=== PATIENT | male | born 1965 | race American Indian/Alaskan Native ===

== ENCOUNTER 2018-08-16 15:51 | Inpatient (IN) | payer MEDICARE, OTHER ==
[~2018-08-16] VITALS: Ht 172.7 cm; Wt 118.2 kg
[~2018-08-16 15:51] MED LIST: ACET-890 PO; ALBU8.5H8 IH; ALLO100T PO; ASPI-1265 PO; BISA-155 PR; CARV-50 PO; DIGO125T78 PO; DOCU-148; DULR RC; FLO0.4C PO; FURO40TA4 PO; GABA-338 PO; GUAI600T89 PO; INSU100V36 SQ; LACT1CAP65 PO; LANTUS SQ; LEVO125T PO; MAGN400T6 PO; MYCOL15CR TOP; PER10325T PO; POLY119P2 PO; PRAV40TA3 PO; SACU1TAB PO; TAMS0.4C32 PO; ZAR2.5T PO; lidocaine 2%
[2018-08-16] MEDS ORDERED: ondansetron/PF 4mg/2ml inj IV ONE (17:00)
[2018-08-16] MEDS: morphine 4 MG/ML inj SYRINge IV PRN ×2 (17:21→21:27)
[2018-08-16 17:54] LABS: BASOPHILS # (AUTO) 0.1 X10'3 (0-0.2); BASOPHILS % (AUTO) 0.3 % (0-1); EOSINOPHILS # (AUTO) 0.2 X10'3 (0-0.9); EOSINOPHILS % (AUTO) 0.8 % (0-6); HEMATOCRIT 37.9 % (42.0-52.0); HEMOGLOBIN 12.2 g/dl (14.0-17.9); LYMPHOCYTES # (AUTO) 1.6 X10'3 (1.1-4.8); LYMPHOCYTES % (AUTO) 7.4 % (21-51); MEAN CORPUSCULAR HEMOGLOBIN 28.3 PG (27.0-31.0); MEAN CORPUSCULAR HGB CONC 32.3 % (33.0-36.5); MEAN CORPUSCULAR VOLUME 87.7 FL (78-98); MEAN PLATELET VOLUME 10.7 FL (7.4-10.4); MONOCYTES # (AUTO) 0.6 X10'3 (0-0.9); MONOCYTES % (AUTO) 2.8 % (2-12); NEUTROPHILS # (AUTO) 19.1 X10'3 (1.8-7.7); NEUTROPHILS % (AUTO) 88.7 % (42-75); PLATELET COUNT 187 X10'3 (140-440); RED BLOOD COUNT 4.33 X10'6 (4.70-6.10); RED CELL DISTRIBUTION WIDTH 15.6 % (11.5-14.5); WHITE BLOOD COUNT 21.5 X10'3 (4.5-11.0)
[2018-08-16] MEDS ORDERED: levoFLOXACIN-Levaquin 750MG/D5 150 ML IV ONE (18:05)
[2018-08-16] MEDS ORDERED: normal saline 1000ML IV soln IV ONE (18:05)
[2018-08-16 18:09] LABS: ALANINE AMINOTRANSFERASE 22 U/L (12-78); ALBUMIN 3.6 G/DL (3.4-5.0); ALBUMIN/GLOBULIN RATIO 0.9 (1.1-1.5); ALKALINE PHOSPHATASE 102 IU/L (46-116); ANION GAP 12 (8-16); ASPARTATE AMINO TRANSFERASE 16 U/L (10-37); BILIRUBIN,TOTAL 0.7 MG/DL (0.1-1.0); BLOOD UREA NITROGEN 69 MG/DL (7-18); BUN/CREATININE RATIO 43.4 (5.4-32.0); CALCIUM 9.4 MG/DL (8.5-10.1); CHLORIDE 99 MMOL/L (99-107); CREATININE 1.59 MG/DL (0.60-1.10); GLUCOSE 270 MG/DL (70-104); POTASSIUM 4.6 MMOL/L (3.5-5.1); SODIUM 137 MMOL/L (135-145); TOTAL CARBON DIOXIDE 26.1 MMOL/L (24-32); TOTAL PROTEIN 7.5 G/DL (6.4-8.2); eGFR 46 ML/MIN
[2018-08-16 19:22] LABS: CLARITY,URINE CLOUDY (Clear); COLOR,URINE RED (Yellow); UA COLLECTION TYPE FOLEY CATH
[2018-08-16 19:27] LABS: RBC,URINE TNTC /HPF (0-2); WBC,URINE TNTC /HPF (0-4)
[2018-08-16 19:28] LABS: BACTERIA,URINE 3+ /HPF (Neg); MUCUS STRANDS FEW /LPF (Neg); SQUAMOUS EPITHELIAL CELL,UR NONE SEEN /LPF (FEW)
[2018-08-16] MEDS ORDERED: APIX2.5T PO (20:30)
[2018-08-16] MEDS ORDERED: ATOR10TA87 PO (20:30)
[2018-08-16] MEDS ORDERED: CIPR-259 PO (20:30)
[2018-08-16] MEDS ORDERED: INSU100V9 SQ (20:30)
[2018-08-16] MEDS ORDERED: CYCL-394 (20:30)
[2018-08-16] MEDS ORDERED: temazepam 15mg capsule PO PRN (21:00)
[2018-08-16] MEDS ORDERED: acetaminophen 325mg tablet PO PRN ×2 (21:20)
[2018-08-16] MEDS ORDERED: dextrose 50%-water 50ml dispensing syringe IV PRN ×2 (21:20)
[2018-08-16] MEDS ORDERED: mag hydrox/Alum hydrox/simeth 30ml oral suspension PO PRN (21:20)
[2018-08-16] MEDS ORDERED: glucagon, human recombinant 1mg kit SUBCUT PRN (21:20)
[2018-08-16] MEDS ORDERED: MESSAGE TO PHARMACY PO ONE (21:20)
[2018-08-16] MEDS ORDERED: dextrose ORAL solution 15 GM/59 ML bottle PO PRN ×2 (21:20)
[2018-08-16] MEDS ORDERED: non-formulary drug (Albuterol Sulfate (Proair Hfa) 2 PUFFS) IH PRN (21:25)
[2018-08-16 21:39] LABS: HEMOGLOBIN A1C 8.4 % (4.5-6.2)
[2018-08-16 22:20] VITALS: BP 120/66
[2018-08-16] MEDS: oxyCODONE/APAP 10/325mg tablet PO PRN (22:56)
[2018-08-17] VITALS (22 sets, daily range): BP systolic 63–113; BP diastolic 29–86
[2018-08-17] MEDS: phenazopyridine 100mg tablet PO PRN (00:23)
[2018-08-17] MEDS ORDERED: morphine 10mg/ml inj. IV ONE (01:30)
[2018-08-17] MEDS: oxyCODONE/APAP 10/325mg tablet PO PRN (05:03)
[2018-08-17 05:29] LABS: BASOPHILS % (AUTO) 0 % (0-1); EOSINOPHILS % (AUTO) 0 % (0-6); HEMATOCRIT 33.8 % (42.0-52.0); HEMOGLOBIN 11.1 g/dl (14.0-17.9); LYMPHOCYTES # (AUTO) 1.3 X10'3 (1.1-4.8); LYMPHOCYTES % (AUTO) 5.9 % (21-51); MEAN CORPUSCULAR HEMOGLOBIN 28.8 PG (27.0-31.0); MEAN CORPUSCULAR HGB CONC 32.7 % (33.0-36.5); MEAN CORPUSCULAR VOLUME 87.9 FL (78-98); MEAN PLATELET VOLUME 11.1 FL (7.4-10.4); MONOCYTES # (AUTO) 1.5 X10'3 (0-0.9); MONOCYTES % (AUTO) 6.6 % (2-12); NEUTROPHILS # (AUTO) 19.3 X10'3 (1.8-7.7); NEUTROPHILS % (AUTO) 87.5 % (42-75); PLATELET COUNT 161 X10'3 (140-440); RED BLOOD COUNT 3.85 X10'6 (4.70-6.10); RED CELL DISTRIBUTION WIDTH 15.4 % (11.5-14.5)
[2018-08-17 06:40] LABS: ALBUMIN 3.3 G/DL (3.4-5.0); ANION GAP 13 (8-16); BLOOD UREA NITROGEN 68 MG/DL (7-18); BUN/CREATININE RATIO 36.6 (5.4-32.0); CALCIUM 8.7 MG/DL (8.5-10.1); CHLORIDE 99 MMOL/L (99-107); CREATININE 1.86 MG/DL (0.60-1.10); GLUCOSE 215 MG/DL (70-104); POTASSIUM 4.8 MMOL/L (3.5-5.1); SODIUM 134 MMOL/L (135-145); TOTAL CARBON DIOXIDE 21.6 MMOL/L (24-32); eGFR 38 ML/MIN
[2018-08-17] MEDS ORDERED: carVEDilol 12.5mg tablet PO SCH (08:00)
[2018-08-17] MEDS ORDERED: aspirin 81mg tab.chew PO SCH (08:00)
[2018-08-17] MEDS ORDERED: insulin glargine (Lantus) pen - multi-dose SQ SCH ×3 (08:00→21:00)
[2018-08-17] MEDS ORDERED: furosemide 40mg tablet PO SCH (08:00)
[2018-08-17] MEDS ORDERED: apixaban 2.5mg tablet PO SCH (08:00)
[2018-08-17] MEDS: levoTHYROXINE 125mcg tablet PO SCH (08:14)
[2018-08-17] MEDS: levoFLOXACIN-Levaquin 500mg/D5 100 ML IV SCH (08:14)
[2018-08-17] MEDS: magnesium oxide 400mg tablet PO SCH ×2 (08:15→19:04)
[2018-08-17] MEDS: allopurinol 100mg tablet PO SCH (08:15)
[2018-08-17] MEDS: gabapentin 300mg capsule PO SCH ×3 (08:15→20:56)
[2018-08-17] MEDS: digoxin 125mcg (0.125mg) tablet PO SCH (08:16)
[2018-08-17] MEDS: tamsulosin 0.4mg capsule PO SCH (08:17)
[2018-08-17] MEDS: atorvastatin 10mg tablet PO SCH (08:17)
[2018-08-17] MEDS: sacubitril/valsartan 24mg-26mg tablet PO SCH (09:15)
[2018-08-17] MEDS: insulin Lispro (HumaLOG) vial - multi-dose SQ SCH ×3 (09:35→19:00)
[2018-08-17] MEDS: insulin glargine (Lantus) pen - multi-dose SQ SCH ×2 (09:44→20:56)
[2018-08-17 14:50] LABS: BASOPHILS % (AUTO) 0.2 % (0-1); EOSINOPHILS # (AUTO) 0.2 X10'3 (0-0.9); EOSINOPHILS % (AUTO) 1.5 % (0-6); HEMATOCRIT 22.2 % (42.0-52.0); HEMOGLOBIN 7.3 g/dl (14.0-17.9); LYMPHOCYTES # (AUTO) 1.4 X10'3 (1.1-4.8); LYMPHOCYTES % (AUTO) 9.2 % (21-51); MEAN CORPUSCULAR HEMOGLOBIN 28.8 PG (27.0-31.0); MEAN CORPUSCULAR HGB CONC 32.8 % (33.0-36.5); MEAN CORPUSCULAR VOLUME 87.7 FL (78-98); MEAN PLATELET VOLUME 9.6 FL (7.4-10.4); MONOCYTES # (AUTO) 0.8 X10'3 (0-0.9); MONOCYTES % (AUTO) 5.2 % (2-12); NEUTROPHILS # (AUTO) 12.4 X10'3 (1.8-7.7); NEUTROPHILS % (AUTO) 83.9 % (42-75); PLATELET COUNT 119 X10'3 (140-440); RED BLOOD COUNT 2.53 X10'6 (4.70-6.10); RED CELL DISTRIBUTION WIDTH 15.1 % (11.5-14.5); WHITE BLOOD COUNT 14.8 X10'3 (4.5-11.0)
[2018-08-17] MEDS ORDERED: acetaminophen 325mg tablet PO ONE (15:00)
[2018-08-17] MEDS ORDERED: normal saline 500ml IV soln 1,000 ML IV ONE (15:00)
[2018-08-17] MEDS ORDERED: diphenhydrAMINE 25mg capsule PO ONE (15:00)
[2018-08-17] MEDS ORDERED: furosemide 40mg/4ml inj IV ONE (17:00)
[2018-08-17] MEDS: lactobacillus rhamnosus 10,000 MMU CELLS/CAPSULE PO SCH (19:04)
[2018-08-17] MEDS: carVEDilol 3.125mg tablet PO SCH (20:00)
[2018-08-18] VITALS: BP_SYST 92; BP_SYST 94; BP_DIAS 50; BP_DIAS 58
[2018-08-18] MEDS: normal saline 1000ml 1,000 ML IV SCH ×4 (01:00→23:03)
[2018-08-18 02:11] LABS: ALBUMIN 3.1 G/DL (3.4-5.0); ANION GAP 8 (8-16); BASOPHILS # (AUTO) 0.1 X10'3 (0-0.2); BASOPHILS % (AUTO) 0.5 % (0-1); BLOOD UREA NITROGEN 75 MG/DL (7-18); BUN/CREATININE RATIO 34.4 (5.4-32.0); CALCIUM 8.3 MG/DL (8.5-10.1); CHLORIDE 98 MMOL/L (99-107); CREATININE 2.18 MG/DL (0.60-1.10); EOSINOPHILS # (AUTO) 0.4 X10'3 (0-0.9); EOSINOPHILS % (AUTO) 2.2 % (0-6); GLUCOSE 183 MG/DL (70-104); HEMATOCRIT 34.4 % (42.0-52.0); HEMOGLOBIN 11.8 g/dl (14.0-17.9); LYMPHOCYTES # (AUTO) 1.1 X10'3 (1.1-4.8); LYMPHOCYTES % (AUTO) 6.8 % (21-51); MEAN CORPUSCULAR HEMOGLOBIN 30.5 PG (27.0-31.0); MEAN CORPUSCULAR HGB CONC 34.2 % (33.0-36.5); MEAN CORPUSCULAR VOLUME 89.3 FL (78-98); MONOCYTES # (AUTO) 1.3 X10'3 (0-0.9); MONOCYTES % (AUTO) 7.6 % (2-12); NEUTROPHILS # (AUTO) 13.9 X10'3 (1.8-7.7); NEUTROPHILS % (AUTO) 82.9 % (42-75); PLATELET COUNT 123 X10'3 (140-440); POTASSIUM 4.6 MMOL/L (3.5-5.1); RED BLOOD COUNT 3.85 X10'6 (4.70-6.10); RED CELL DISTRIBUTION WIDTH 14.5 % (11.5-14.5); SODIUM 132 MMOL/L (135-145); WHITE BLOOD COUNT 16.8 X10'3 (4.5-11.0); eGFR 32 ML/MIN
[2018-08-18 03:13] VITALS: BP 111/55
[2018-08-18 07:13] VITALS: BP 103/45
[2018-08-18] MEDS ORDERED: furosemide 40mg tablet PO SCH (08:00)
[2018-08-18] MEDS: carVEDilol 3.125mg tablet PO SCH (08:00)
[2018-08-18 08:23] LABS: BASOPHILS % (AUTO) 0 % (0-1); EOSINOPHILS # (AUTO) 0.4 X10'3 (0-0.9); EOSINOPHILS % (AUTO) 2.1 % (0-6); HEMATOCRIT 35.9 % (42.0-52.0); HEMOGLOBIN 11.9 g/dl (14.0-17.9); LYMPHOCYTES # (AUTO) 1.1 X10'3 (1.1-4.8); LYMPHOCYTES % (AUTO) 6.6 % (21-51); MEAN CORPUSCULAR HEMOGLOBIN 29.5 PG (27.0-31.0); MEAN CORPUSCULAR HGB CONC 33.2 % (33.0-36.5); MEAN PLATELET VOLUME 9.9 FL (7.4-10.4); MONOCYTES # (AUTO) 1.1 X10'3 (0-0.9); MONOCYTES % (AUTO) 6.6 % (2-12); NEUTROPHILS # (AUTO) 13.9 X10'3 (1.8-7.7); NEUTROPHILS % (AUTO) 84.7 % (42-75); PLATELET COUNT 127 X10'3 (140-440); RED BLOOD COUNT 4.03 X10'6 (4.70-6.10); RED CELL DISTRIBUTION WIDTH 15.6 % (11.5-14.5); WHITE BLOOD COUNT 16.5 X10'3 (4.5-11.0)
[2018-08-18] MEDS: levoFLOXACIN-Levaquin 500mg/D5 100 ML IV SCH (08:42)
[2018-08-18] MEDS: atorvastatin 10mg tablet PO SCH (08:42)
[2018-08-18] MEDS: digoxin 125mcg (0.125mg) tablet PO SCH (08:43)
[2018-08-18] MEDS: tamsulosin 0.4mg capsule PO SCH (08:43)
[2018-08-18] MEDS: gabapentin 300mg capsule PO SCH ×3 (08:43→20:22)
[2018-08-18] MEDS: allopurinol 100mg tablet PO SCH (08:43)
[2018-08-18] MEDS: lactobacillus rhamnosus 10,000 MMU CELLS/CAPSULE PO SCH ×2 (08:43→20:19)
[2018-08-18] MEDS: levoTHYROXINE 125mcg tablet PO SCH (08:43)
[2018-08-18] MEDS: magnesium oxide 400mg tablet PO SCH ×2 (08:43→20:19)
[2018-08-18] MEDS: insulin glargine (Lantus) pen - multi-dose SQ SCH ×2 (08:51→20:28)
[2018-08-18] MEDS: insulin Lispro (HumaLOG) vial - multi-dose SQ SCH ×2 (08:52→13:29)
[2018-08-18] MEDS ORDERED: carvedilol 6.25mg tablet PO ONE (10:15)
[2018-08-18] MEDS: ondansetron/PF 4mg/2ml inj IV PRN (10:26)
[2018-08-18 11:00] VITALS: BP 116/58
[2018-08-18] MEDS: magnesium hydroxide 30ml (MOM) UD suspension PO PRN (17:02)
[2018-08-18 19:00] VITALS: BP 102/58
[2018-08-18] MEDS: carvedilol 6.25mg tablet PO SCH (20:00)
[2018-08-19] VITALS (7 sets, daily range): BP systolic 91–127; BP diastolic 46–72
[2018-08-19] MEDS: oxyCODONE/APAP 10/325mg tablet PO PRN ×3 (00:09→17:37)
[2018-08-19] MEDS: magnesium hydroxide 30ml (MOM) UD suspension PO PRN (00:09)
[2018-08-19 06:11] LABS: BASOPHILS % (AUTO) 0.1 % (0-1); EOSINOPHILS # (AUTO) 0.2 X10'3 (0-0.9); EOSINOPHILS % (AUTO) 1.4 % (0-6); HEMATOCRIT 34.4 % (42.0-52.0); HEMOGLOBIN 11.2 g/dl (14.0-17.9); LYMPHOCYTES % (AUTO) 7.5 % (21-51); MEAN CORPUSCULAR HEMOGLOBIN 29.1 PG (27.0-31.0); MEAN CORPUSCULAR HGB CONC 32.6 % (33.0-36.5); MEAN CORPUSCULAR VOLUME 89.3 FL (78-98); MEAN PLATELET VOLUME 10.8 FL (7.4-10.4); MONOCYTES # (AUTO) 1.2 X10'3 (0-0.9); MONOCYTES % (AUTO) 8.6 % (2-12); NEUTROPHILS # (AUTO) 11.5 X10'3 (1.8-7.7); NEUTROPHILS % (AUTO) 82.4 % (42-75); PLATELET COUNT 145 X10'3 (140-440); RED BLOOD COUNT 3.85 X10'6 (4.70-6.10); RED CELL DISTRIBUTION WIDTH 15.6 % (11.5-14.5)
[2018-08-19 06:15] LABS: ALBUMIN 2.7 G/DL (3.4-5.0); ANION GAP 10 (8-16); BLOOD UREA NITROGEN 74 MG/DL (7-18); BUN/CREATININE RATIO 35.2 (5.4-32.0); CALCIUM 7.8 MG/DL (8.5-10.1); CHLORIDE 98 MMOL/L (99-107); GLUCOSE 159 MG/DL (70-104); POTASSIUM 4.4 MMOL/L (3.5-5.1); SODIUM 132 MMOL/L (135-145); TOTAL CARBON DIOXIDE 24.5 MMOL/L (24-32); eGFR 33 ML/MIN
[2018-08-19 07:12] LABS: LARGE PLATELETS FEW; PLATELET ESTIMATE NORMAL
[2018-08-19] MEDS: carvedilol 6.25mg tablet PO SCH ×2 (08:00→20:20)
[2018-08-19] MEDS: insulin glargine (Lantus) pen - multi-dose SQ SCH ×2 (08:37→20:17)
[2018-08-19] MEDS: insulin Lispro (HumaLOG) vial - multi-dose SQ SCH ×3 (08:40→18:46)
[2018-08-19] MEDS: levoTHYROXINE 125mcg tablet PO SCH (08:43)
[2018-08-19] MEDS: magnesium oxide 400mg tablet PO SCH ×2 (08:43→20:20)
[2018-08-19] MEDS: lactobacillus rhamnosus 10,000 MMU CELLS/CAPSULE PO SCH ×2 (08:43→20:20)
[2018-08-19] MEDS: levoFLOXACIN-Levaquin 500mg/D5 100 ML IV SCH (08:43)
[2018-08-19] MEDS: tamsulosin 0.4mg capsule PO SCH (08:43)
[2018-08-19] MEDS: gabapentin 300mg capsule PO SCH ×3 (08:43→20:20)
[2018-08-19] MEDS: digoxin 125mcg (0.125mg) tablet PO SCH (08:43)
[2018-08-19] MEDS: allopurinol 100mg tablet PO SCH (08:43)
[2018-08-19] MEDS: atorvastatin 10mg tablet PO SCH (08:45)
[2018-08-19] MEDS ORDERED: NORMAL SALINE IV SCH (09:55)
[2018-08-19] MEDS ORDERED: AMIKACIN IV SCH (09:55)
[2018-08-19] MEDS ORDERED: bisacodyl 10mg suppository rectal RC PRN (10:35)
[2018-08-19] MEDS: pantoprazole 40 MG vial IV SCH (11:32)
[2018-08-19] MEDS: docusate sod 100mg capsule PO SCH ×2 (11:32→20:20)
[2018-08-19] MEDS: morphine 2 MG/ML inj. syringe IV PRN ×2 (11:34→15:33)
[2018-08-19] MEDS: ondansetron/PF 4mg/2ml inj IV PRN (13:06)
[2018-08-19] MEDS: normal saline 1000ml 1,000 ML IV SCH (13:06)
[2018-08-19] MEDS: NORMAL SALINE IV SCH (13:07)
[2018-08-19] MEDS: GENTAMICIN IV SCH (13:07)
[2018-08-19] MEDS: sacubitril/valsartan 24mg-26mg tablet PO SCH (20:20)
[2018-08-20] MEDS: GENTAMICIN IV SCH ×2 (00:34→14:24)
[2018-08-20] MEDS: NORMAL SALINE IV SCH ×2 (00:34→14:24)
[2018-08-20] MEDS: normal saline 1000ml 1,000 ML IV SCH ×2 (00:34→16:52)
[2018-08-20 05:19] LABS: BASOPHILS % (AUTO) 0.1 % (0-1); EOSINOPHILS # (AUTO) 0.1 X10'3 (0-0.9); EOSINOPHILS % (AUTO) 0.9 % (0-6); HEMATOCRIT 31.7 % (42.0-52.0); HEMOGLOBIN 10.5 g/dl (14.0-17.9); LYMPHOCYTES % (AUTO) 6.7 % (21-51); MEAN CORPUSCULAR HEMOGLOBIN 29.4 PG (27.0-31.0); MEAN CORPUSCULAR HGB CONC 33.2 % (33.0-36.5); MEAN CORPUSCULAR VOLUME 88.7 FL (78-98); MEAN PLATELET VOLUME 11.2 FL (7.4-10.4); MONOCYTES # (AUTO) 1.2 X10'3 (0-0.9); MONOCYTES % (AUTO) 8.3 % (2-12); NEUTROPHILS # (AUTO) 11.9 X10'3 (1.8-7.7); PLATELET COUNT 152 X10'3 (140-440); RED BLOOD COUNT 3.57 X10'6 (4.70-6.10); RED CELL DISTRIBUTION WIDTH 15.9 % (11.5-14.5); WHITE BLOOD COUNT 14.2 X10'3 (4.5-11.0)
[2018-08-20 05:35] LABS: ALBUMIN 2.5 G/DL (3.4-5.0); ANION GAP 11 (8-16); BLOOD UREA NITROGEN 82 MG/DL (7-18); BUN/CREATININE RATIO 32.7 (5.4-32.0); CALCIUM 7.5 MG/DL (8.5-10.1); CHLORIDE 95 MMOL/L (99-107); CREATININE 2.51 MG/DL (0.60-1.10); GLUCOSE 88 MG/DL (70-104); POTASSIUM 4.8 MMOL/L (3.5-5.1); SODIUM 128 MMOL/L (135-145); TOTAL CARBON DIOXIDE 21.7 MMOL/L (24-32); eGFR 27 ML/MIN
[2018-08-20] MEDS: carvedilol 6.25mg tablet PO SCH ×2 (06:07→18:38)
[2018-08-20] MEDS: sacubitril/valsartan 24mg-26mg tablet PO SCH ×2 (06:08→18:38)
[2018-08-20] MEDS: atorvastatin 10mg tablet PO SCH (07:29)
[2018-08-20] MEDS: levoTHYROXINE 125mcg tablet PO SCH (07:29)
[2018-08-20] MEDS: lactobacillus rhamnosus 10,000 MMU CELLS/CAPSULE PO SCH ×2 (07:29→20:53)
[2018-08-20] MEDS: allopurinol 100mg tablet PO SCH (07:29)
[2018-08-20] MEDS: pantoprazole 40 MG vial IV SCH (07:29)
[2018-08-20] MEDS: tamsulosin 0.4mg capsule PO SCH (07:29)
[2018-08-20] MEDS: magnesium oxide 400mg tablet PO SCH ×2 (07:29→20:53)
[2018-08-20] MEDS: docusate sod 100mg capsule PO SCH ×2 (07:29→20:00)
[2018-08-20] MEDS: gabapentin 300mg capsule PO SCH ×3 (07:29→20:53)
[2018-08-20] MEDS: digoxin 125mcg (0.125mg) tablet PO SCH (07:30)
[2018-08-20] MEDS: insulin glargine (Lantus) pen - multi-dose SQ SCH ×2 (07:58→21:01)
[2018-08-20 08:00] VITALS: BP 74/44
[2018-08-20] MEDS: morphine 2 MG/ML inj. syringe IV PRN (10:29)
[2018-08-20 11:10] VITALS: BP 81/51
[2018-08-20] MEDS ORDERED: normal saline 500ml IV soln 1,000 ML IV ONE ×2 (12:15→14:15)
[2018-08-20 14:34] LABS: BASOPHILS % (AUTO) 0.1 % (0-1); EOSINOPHILS # (AUTO) 0.2 X10'3 (0-0.9); EOSINOPHILS % (AUTO) 1.3 % (0-6); HEMATOCRIT 32.5 % (42.0-52.0); HEMOGLOBIN 10.6 g/dl (14.0-17.9); LYMPHOCYTES # (AUTO) 1.1 X10'3 (1.1-4.8); LYMPHOCYTES % (AUTO) 9.4 % (21-51); MEAN CORPUSCULAR HEMOGLOBIN 29.1 PG (27.0-31.0); MEAN CORPUSCULAR HGB CONC 32.7 % (33.0-36.5); MEAN CORPUSCULAR VOLUME 89.1 FL (78-98); MEAN PLATELET VOLUME 10.1 FL (7.4-10.4); MONOCYTES # (AUTO) 1.4 X10'3 (0-0.9); MONOCYTES % (AUTO) 11.7 % (2-12); NEUTROPHILS # (AUTO) 9.3 X10'3 (1.8-7.7); NEUTROPHILS % (AUTO) 77.5 % (42-75); PLATELET COUNT 152 X10'3 (140-440); RED BLOOD COUNT 3.65 X10'6 (4.70-6.10); RED CELL DISTRIBUTION WIDTH 16.5 % (11.5-14.5)
[2018-08-20 14:45] LABS: ALBUMIN 2.5 G/DL (3.4-5.0); ANION GAP 11 (8-16); BLOOD UREA NITROGEN 88 MG/DL (7-18); BUN/CREATININE RATIO 32.6 (5.4-32.0); CALCIUM 7.4 MG/DL (8.5-10.1); CHLORIDE 95 MMOL/L (99-107); GLUCOSE 128 MG/DL (70-104); POTASSIUM 4.8 MMOL/L (3.5-5.1); SODIUM 127 MMOL/L (135-145); TOTAL CARBON DIOXIDE 21.3 MMOL/L (24-32); eGFR 25 ML/MIN
[2018-08-20 18:00] VITALS: BP 82/52
[2018-08-21] VITALS: BP 100/56
[2018-08-21] MEDS ORDERED: MESSAGE TO NURSING IV ONE ×4 (00:30→13:30)
[2018-08-21] MEDS: NORMAL SALINE IV SCH ×2 (00:32→13:10)
[2018-08-21] MEDS: GENTAMICIN IV SCH ×2 (00:32→13:10)
[2018-08-21] MEDS: albuterol 2.5 MG/3 ML nebule NEB PRN ×2 (05:56→21:34)
[2018-08-21 07:41] VITALS: BP 108/61
[2018-08-21] MEDS: carvedilol 6.25mg tablet PO SCH ×2 (08:00→19:49)
[2018-08-21] MEDS: sacubitril/valsartan 24mg-26mg tablet PO SCH ×2 (08:00→19:50)
[2018-08-21] MEDS: atorvastatin 10mg tablet PO SCH (09:26)
[2018-08-21] MEDS: pantoprazole 40mg Tablet.DR PO SCH (09:26)
[2018-08-21] MEDS: lactobacillus rhamnosus 10,000 MMU CELLS/CAPSULE PO SCH ×2 (09:27→20:05)
[2018-08-21] MEDS: magnesium oxide 400mg tablet PO SCH ×2 (09:27→20:05)
[2018-08-21] MEDS: digoxin 125mcg (0.125mg) tablet PO SCH (09:28)
[2018-08-21] MEDS: docusate sod 100mg capsule PO SCH ×2 (09:28→20:04)
[2018-08-21] MEDS: allopurinol 100mg tablet PO SCH (09:29)
[2018-08-21] MEDS: gabapentin 300mg capsule PO SCH ×2 (09:29→20:05)
[2018-08-21] MEDS: oxyCODONE/APAP 10/325mg tablet PO PRN (09:30)
[2018-08-21] MEDS: tamsulosin 0.4mg capsule PO SCH (09:31)
[2018-08-21] MEDS: levoTHYROXINE 125mcg tablet PO SCH (09:31)
[2018-08-21] MEDS: insulin glargine (Lantus) pen - multi-dose SQ SCH ×2 (09:39→21:26)
[2018-08-21] MEDS: insulin Lispro (HumaLOG) vial - multi-dose SQ SCH ×3 (09:53→18:53)
[2018-08-21 11:45] VITALS: BP 108/58
[2018-08-21 12:53] LABS: BASOPHILS % (AUTO) 0.2 % (0-1); EOSINOPHILS # (AUTO) 0.2 X10'3 (0-0.9); EOSINOPHILS % (AUTO) 1.9 % (0-6); HEMATOCRIT 32.6 % (42.0-52.0); HEMOGLOBIN 10.7 g/dl (14.0-17.9); LYMPHOCYTES # (AUTO) 1.5 X10'3 (1.1-4.8); LYMPHOCYTES % (AUTO) 12.4 % (21-51); MEAN CORPUSCULAR HEMOGLOBIN 29.2 PG (27.0-31.0); MEAN CORPUSCULAR HGB CONC 32.9 % (33.0-36.5); MEAN CORPUSCULAR VOLUME 88.7 FL (78-98); MEAN PLATELET VOLUME 10.5 FL (7.4-10.4); MONOCYTES # (AUTO) 1.5 X10'3 (0-0.9); MONOCYTES % (AUTO) 12.2 % (2-12); NEUTROPHILS # (AUTO) 8.8 X10'3 (1.8-7.7); NEUTROPHILS % (AUTO) 73.3 % (42-75); PLATELET COUNT 172 X10'3 (140-440); RED BLOOD COUNT 3.67 X10'6 (4.70-6.10); RED CELL DISTRIBUTION WIDTH 16.1 % (11.5-14.5)
[2018-08-21 12:59] LABS: ALBUMIN 2.6 G/DL (3.4-5.0); ANION GAP 9 (8-16); BLOOD UREA NITROGEN 99 MG/DL (7-18); BUN/CREATININE RATIO 37.5 (5.4-32.0); CALCIUM 7.7 MG/DL (8.5-10.1); CHLORIDE 94 MMOL/L (99-107); CREATININE 2.64 MG/DL (0.60-1.10); GLUCOSE 146 MG/DL (70-104); POTASSIUM 4.4 MMOL/L (3.5-5.1); SODIUM 126 MMOL/L (135-145); eGFR 25 ML/MIN
[2018-08-21 20:00] VITALS: BP 124/64
[2018-08-21] MEDS: HYDROcodone/acetaminophen 5mg/325mg tablet PO PRN (23:58)
[2018-08-22] VITALS: BP 122/62
[2018-08-22] MEDS: albuterol 2.5 MG/3 ML nebule NEB PRN ×3 (02:49→19:58)
[2018-08-22 05:30] LABS: BASOPHILS % (AUTO) 0.3 % (0-1); EOSINOPHILS # (AUTO) 0.4 X10'3 (0-0.9); EOSINOPHILS % (AUTO) 2.9 % (0-6); HEMOGLOBIN 10.5 g/dl (14.0-17.9); LYMPHOCYTES # (AUTO) 1.6 X10'3 (1.1-4.8); MEAN CORPUSCULAR HEMOGLOBIN 28.7 PG (27.0-31.0); MEAN CORPUSCULAR HGB CONC 32.7 % (33.0-36.5); MEAN CORPUSCULAR VOLUME 87.8 FL (78-98); MEAN PLATELET VOLUME 11.1 FL (7.4-10.4); MONOCYTES # (AUTO) 1.5 X10'3 (0-0.9); MONOCYTES % (AUTO) 12.1 % (2-12); NEUTROPHILS # (AUTO) 8.9 X10'3 (1.8-7.7); NEUTROPHILS % (AUTO) 71.7 % (42-75); PLATELET COUNT 181 X10'3 (140-440); RED BLOOD COUNT 3.64 X10'6 (4.70-6.10); WHITE BLOOD COUNT 12.5 X10'3 (4.5-11.0)
[2018-08-22 05:37] LABS: ALBUMIN 2.6 G/DL (3.4-5.0); ANION GAP 12 (8-16); BLOOD UREA NITROGEN 98 MG/DL (7-18); BUN/CREATININE RATIO 40.8 (5.4-32.0); CALCIUM 7.6 MG/DL (8.5-10.1); CHLORIDE 94 MMOL/L (99-107); GLUCOSE 129 MG/DL (70-104); POTASSIUM 4.3 MMOL/L (3.5-5.1); SODIUM 127 MMOL/L (135-145); TOTAL CARBON DIOXIDE 21.4 MMOL/L (24-32); eGFR 28 ML/MIN
[2018-08-22 06:39] LABS: LARGE PLATELETS FEW; PLATELET ESTIMATE NORMAL
[2018-08-22 07:00] VITALS: BP 106/64
[2018-08-22 07:33] VITALS: BP 106/64
[2018-08-22] MEDS: sacubitril/valsartan 24mg-26mg tablet PO SCH ×2 (08:00→19:13)
[2018-08-22] MEDS: carvedilol 6.25mg tablet PO SCH ×2 (08:00→19:13)
[2018-08-22] MEDS: docusate sod 100mg capsule PO SCH ×2 (08:44→19:05)
[2018-08-22] MEDS: lactobacillus rhamnosus 10,000 MMU CELLS/CAPSULE PO SCH ×2 (08:44→19:11)
[2018-08-22] MEDS: pantoprazole 40mg Tablet.DR PO SCH (08:45)
[2018-08-22] MEDS: tamsulosin 0.4mg capsule PO SCH (08:45)
[2018-08-22] MEDS: atorvastatin 10mg tablet PO SCH (08:46)
[2018-08-22] MEDS: digoxin 125mcg (0.125mg) tablet PO SCH (08:46)
[2018-08-22] MEDS: gabapentin 300mg capsule PO SCH ×2 (08:47→19:11)
[2018-08-22] MEDS: magnesium oxide 400mg tablet PO SCH ×2 (08:47→19:11)
[2018-08-22] MEDS: levoTHYROXINE 125mcg tablet PO SCH (08:47)
[2018-08-22] MEDS: allopurinol 100mg tablet PO SCH (08:48)
[2018-08-22] MEDS: insulin glargine (Lantus) pen - multi-dose SQ SCH ×2 (08:55→21:59)
[2018-08-22] MEDS: insulin Lispro (HumaLOG) vial - multi-dose SQ SCH ×3 (09:28→19:03)
[2018-08-22] MEDS: HYDROcodone/acetaminophen 5mg/325mg tablet PO PRN ×2 (10:31→19:13)
[2018-08-22 11:22] VITALS: BP 112/67
[2018-08-22] MEDS ORDERED: MESSAGE TO NURSING IV ONE (12:00)
[2018-08-22] MEDS ORDERED: furosemide 20MG tablet PO ONE (12:45)
[2018-08-22] MEDS: sodium chloride 1gm tablet PO SCH ×2 (17:13→22:02)
[2018-08-22 19:11] VITALS: BP 132/62
[2018-08-22] MEDS: phenazopyridine 100mg tablet PO PRN (19:11)
[2018-08-22] MEDS: furosemide 40mg tablet PO SCH (19:11)
[2018-08-22 20:00] VITALS: BP 133/57
[2018-08-23] VITALS: BP 135/70
[2018-08-23] MEDS: phenazopyridine 100mg tablet PO PRN (03:13)
[2018-08-23] MEDS: HYDROcodone/acetaminophen 5mg/325mg tablet PO PRN ×2 (03:13→13:33)
[2018-08-23 05:25] LABS: BASOPHILS % (AUTO) 0.2 % (0-1); EOSINOPHILS # (AUTO) 0.5 X10'3 (0-0.9); EOSINOPHILS % (AUTO) 4.1 % (0-6); HEMATOCRIT 32.6 % (42.0-52.0); HEMOGLOBIN 10.8 g/dl (14.0-17.9); LYMPHOCYTES # (AUTO) 1.5 X10'3 (1.1-4.8); LYMPHOCYTES % (AUTO) 11.3 % (21-51); MEAN CORPUSCULAR HGB CONC 33.2 % (33.0-36.5); MEAN CORPUSCULAR VOLUME 87.4 FL (78-98); MEAN PLATELET VOLUME 10.3 FL (7.4-10.4); MONOCYTES # (AUTO) 1.1 X10'3 (0-0.9); MONOCYTES % (AUTO) 8.7 % (2-12); NEUTROPHILS % (AUTO) 75.7 % (42-75); PLATELET COUNT 193 X10'3 (140-440); RED BLOOD COUNT 3.73 X10'6 (4.70-6.10); RED CELL DISTRIBUTION WIDTH 15.9 % (11.5-14.5); WHITE BLOOD COUNT 13.2 X10'3 (4.5-11.0)
[2018-08-23 05:53] LABS: ALANINE AMINOTRANSFERASE 27 U/L (12-78); ALBUMIN 2.8 G/DL (3.4-5.0); ALBUMIN/GLOBULIN RATIO 0.8 (1.1-1.5); ALKALINE PHOSPHATASE 100 IU/L (46-116); ANION GAP 11 (8-16); ASPARTATE AMINO TRANSFERASE 14 U/L (10-37); BILIRUBIN,TOTAL 0.6 MG/DL (0.1-1.0); BLOOD UREA NITROGEN 97 MG/DL (7-18); CALCIUM 7.9 MG/DL (8.5-10.1); CHLORIDE 95 MMOL/L (99-107); CREATININE 2.02 MG/DL (0.60-1.10); GLUCOSE 126 MG/DL (70-104); MAGNESIUM 3.2 MG/DL (1.5-2.4); POTASSIUM 3.9 MMOL/L (3.5-5.1); SODIUM 130 MMOL/L (135-145); TOTAL CARBON DIOXIDE 23.7 MMOL/L (24-32); TOTAL PROTEIN 6.5 G/DL (6.4-8.2); eGFR 35 ML/MIN
[2018-08-23 07:58] VITALS: BP 121/74
[2018-08-23] MEDS: tamsulosin 0.4mg capsule PO SCH (08:00)
[2018-08-23] MEDS: carvedilol 6.25mg tablet PO SCH ×2 (08:00→20:00)
[2018-08-23] MEDS: gabapentin 300mg capsule PO SCH ×2 (08:00→22:06)
[2018-08-23] MEDS: sacubitril/valsartan 24mg-26mg tablet PO SCH ×2 (08:00→20:00)
[2018-08-23] MEDS: atorvastatin 10mg tablet PO SCH (08:00)
[2018-08-23] MEDS: pantoprazole 40mg Tablet.DR PO SCH (08:01)
[2018-08-23] MEDS: docusate sod 100mg capsule PO SCH ×2 (08:01→20:00)
[2018-08-23] MEDS: digoxin 125mcg (0.125mg) tablet PO SCH (08:01)
[2018-08-23] MEDS: lactobacillus rhamnosus 10,000 MMU CELLS/CAPSULE PO SCH ×2 (08:01→22:05)
[2018-08-23] MEDS: allopurinol 100mg tablet PO SCH (08:01)
[2018-08-23] MEDS: furosemide 40mg tablet PO SCH ×2 (08:01→22:05)
[2018-08-23] MEDS: magnesium oxide 400mg tablet PO SCH ×2 (08:02→22:05)
[2018-08-23] MEDS: levoTHYROXINE 125mcg tablet PO SCH (08:02)
[2018-08-23] MEDS: sodium chloride 1gm tablet PO SCH ×4 (08:08→22:06)
[2018-08-23] MEDS: insulin Lispro (HumaLOG) vial - multi-dose SQ SCH ×3 (08:12→18:55)
[2018-08-23] MEDS: insulin glargine (Lantus) pen - multi-dose SQ SCH ×2 (08:21→22:09)
[2018-08-23 11:47] VITALS: BP 141/74
[2018-08-23 20:00] VITALS: BP 119/68
[2018-08-23] MEDS: albuterol 2.5 MG/3 ML nebule NEB PRN (20:40)
[2018-08-24] VITALS: BP 138/70
[2018-08-24] MEDS: HYDROcodone/acetaminophen 5mg/325mg tablet PO PRN ×2 (01:48→19:29)
[2018-08-24 05:55] LABS: BASOPHILS # (AUTO) 0.1 X10'3 (0-0.2); BASOPHILS % (AUTO) 0.4 % (0-1); EOSINOPHILS # (AUTO) 0.6 X10'3 (0-0.9); HEMATOCRIT 34.9 % (42.0-52.0); HEMOGLOBIN 11.4 g/dl (14.0-17.9); LYMPHOCYTES # (AUTO) 1.6 X10'3 (1.1-4.8); LYMPHOCYTES % (AUTO) 10.8 % (21-51); MEAN CORPUSCULAR HEMOGLOBIN 28.5 PG (27.0-31.0); MEAN CORPUSCULAR HGB CONC 32.6 % (33.0-36.5); MEAN CORPUSCULAR VOLUME 87.5 FL (78-98); MONOCYTES # (AUTO) 1.3 X10'3 (0-0.9); MONOCYTES % (AUTO) 8.3 % (2-12); NEUTROPHILS # (AUTO) 11.7 X10'3 (1.8-7.7); NEUTROPHILS % (AUTO) 76.5 % (42-75); PLATELET COUNT 239 X10'3 (140-440); RED CELL DISTRIBUTION WIDTH 15.7 % (11.5-14.5); WHITE BLOOD COUNT 15.3 X10'3 (4.5-11.0)
[2018-08-24 06:53] VITALS: BP 144/81
[2018-08-24 06:58] LABS: ALANINE AMINOTRANSFERASE 22 U/L (12-78); ALBUMIN 2.9 G/DL (3.4-5.0); ALBUMIN/GLOBULIN RATIO 0.7 (1.1-1.5); ALKALINE PHOSPHATASE 99 IU/L (46-116); ANION GAP 11 (8-16); ASPARTATE AMINO TRANSFERASE 12 U/L (10-37); BILIRUBIN,TOTAL 0.6 MG/DL (0.1-1.0); BLOOD UREA NITROGEN 87 MG/DL (7-18); BUN/CREATININE RATIO 48.9 (5.4-32.0); CALCIUM 8.3 MG/DL (8.5-10.1); CHLORIDE 99 MMOL/L (99-107); CREATININE 1.78 MG/DL (0.60-1.10); GLUCOSE 70 MG/DL (70-104); MAGNESIUM 2.9 MG/DL (1.5-2.4); PHOSPHORUS 3.3 MG/DL (2.3-4.5); POTASSIUM 3.7 MMOL/L (3.5-5.1); SODIUM 135 MMOL/L (135-145); TOTAL CARBON DIOXIDE 25.1 MMOL/L (24-32); TOTAL PROTEIN 6.9 G/DL (6.4-8.2); eGFR 40 ML/MIN
[2018-08-24] MEDS: lactobacillus rhamnosus 10,000 MMU CELLS/CAPSULE PO SCH ×2 (08:50→19:28)
[2018-08-24] MEDS: gabapentin 300mg capsule PO SCH ×2 (08:50→19:28)
[2018-08-24] MEDS: digoxin 125mcg (0.125mg) tablet PO SCH (08:50)
[2018-08-24] MEDS: levoTHYROXINE 125mcg tablet PO SCH (08:51)
[2018-08-24] MEDS: docusate sod 100mg capsule PO SCH ×2 (08:51→19:30)
[2018-08-24] MEDS: allopurinol 100mg tablet PO SCH (08:51)
[2018-08-24] MEDS: sacubitril/valsartan 24mg-26mg tablet PO SCH ×2 (08:51→19:35)
[2018-08-24] MEDS: furosemide 40mg tablet PO SCH ×2 (08:51→19:29)
[2018-08-24] MEDS: magnesium oxide 400mg tablet PO SCH ×2 (08:51→19:29)
[2018-08-24] MEDS: atorvastatin 10mg tablet PO SCH (08:51)
[2018-08-24] MEDS: carvedilol 6.25mg tablet PO SCH ×2 (08:51→19:29)
[2018-08-24] MEDS: sodium chloride 1gm tablet PO SCH ×3 (08:51→16:51)
[2018-08-24] MEDS: tamsulosin 0.4mg capsule PO SCH (08:51)
[2018-08-24] MEDS: pantoprazole 40mg Tablet.DR PO SCH (09:06)
[2018-08-24] MEDS: insulin glargine (Lantus) pen - multi-dose SQ SCH ×2 (10:51→19:54)
[2018-08-24 11:46] VITALS: BP 128/74
[2018-08-24] MEDS: insulin Lispro (HumaLOG) vial - multi-dose SQ SCH ×2 (13:24→18:28)
[2018-08-24 18:00] VITALS: BP 115/59
[2018-08-24] MEDS: apixaban 2.5mg tablet PO SCH (19:29)
[2018-08-25] VITALS: BP 129/63
[2018-08-25 06:08] LABS: BASOPHILS # (AUTO) 0.1 X10'3 (0-0.2); BASOPHILS % (AUTO) 0.4 % (0-1); EOSINOPHILS # (AUTO) 0.6 X10'3 (0-0.9); EOSINOPHILS % (AUTO) 4.2 % (0-6); HEMOGLOBIN 10.6 g/dl (14.0-17.9); LYMPHOCYTES # (AUTO) 1.8 X10'3 (1.1-4.8); LYMPHOCYTES % (AUTO) 12.8 % (21-51); MEAN CORPUSCULAR HEMOGLOBIN 28.3 PG (27.0-31.0); MEAN CORPUSCULAR HGB CONC 32.2 % (33.0-36.5); MEAN CORPUSCULAR VOLUME 88.1 FL (78-98); MEAN PLATELET VOLUME 9.8 FL (7.4-10.4); MONOCYTES # (AUTO) 1.2 X10'3 (0-0.9); MONOCYTES % (AUTO) 8.8 % (2-12); NEUTROPHILS # (AUTO) 10.4 X10'3 (1.8-7.7); NEUTROPHILS % (AUTO) 73.8 % (42-75); PLATELET COUNT 270 X10'3 (140-440); RED BLOOD COUNT 3.75 X10'6 (4.70-6.10); RED CELL DISTRIBUTION WIDTH 15.5 % (11.5-14.5); WHITE BLOOD COUNT 14.1 X10'3 (4.5-11.0)
[2018-08-25 06:32] LABS: ALANINE AMINOTRANSFERASE 17 U/L (12-78); ALBUMIN 2.7 G/DL (3.4-5.0); ALBUMIN/GLOBULIN RATIO 0.7 (1.1-1.5); ALKALINE PHOSPHATASE 99 IU/L (46-116); ANION GAP 9 (8-16); ASPARTATE AMINO TRANSFERASE 10 U/L (10-37); BILIRUBIN,TOTAL 0.6 MG/DL (0.1-1.0); BLOOD UREA NITROGEN 77 MG/DL (7-18); CHLORIDE 100 MMOL/L (99-107); CREATININE 1.75 MG/DL (0.60-1.10); GLUCOSE 111 MG/DL (70-104); MAGNESIUM 2.6 MG/DL (1.5-2.4); PHOSPHORUS 2.7 MG/DL (2.3-4.5); POTASSIUM 3.6 MMOL/L (3.5-5.1); SODIUM 136 MMOL/L (135-145); TOTAL CARBON DIOXIDE 26.6 MMOL/L (24-32); TOTAL PROTEIN 6.5 G/DL (6.4-8.2); eGFR 41 ML/MIN
[2018-08-25] MEDS: docusate sod 100mg capsule PO SCH (07:04)
[2018-08-25 07:39] VITALS: BP 127/67
[2018-08-25] MEDS: pantoprazole 40mg Tablet.DR PO SCH (08:08)
[2018-08-25] MEDS: lactobacillus rhamnosus 10,000 MMU CELLS/CAPSULE PO SCH (08:08)
[2018-08-25] MEDS: carvedilol 6.25mg tablet PO SCH (08:08)
[2018-08-25] MEDS: magnesium oxide 400mg tablet PO SCH (08:08)
[2018-08-25] MEDS: gabapentin 300mg capsule PO SCH (08:08)
[2018-08-25] MEDS: tamsulosin 0.4mg capsule PO SCH (08:09)
[2018-08-25] MEDS: sacubitril/valsartan 24mg-26mg tablet PO SCH (08:09)
[2018-08-25] MEDS: allopurinol 100mg tablet PO SCH (08:09)
[2018-08-25] MEDS: levoTHYROXINE 125mcg tablet PO SCH (08:09)
[2018-08-25] MEDS: digoxin 125mcg (0.125mg) tablet PO SCH (08:09)
[2018-08-25] MEDS: apixaban 2.5mg tablet PO SCH (08:09)
[2018-08-25] MEDS: furosemide 40mg tablet PO SCH (08:09)
[2018-08-25] MEDS: atorvastatin 10mg tablet PO SCH (08:09)
[2018-08-25] MEDS: insulin glargine (Lantus) pen - multi-dose SQ SCH (08:15)
[2018-08-25] MEDS ORDERED: aspirin 81mg tablet.DR PO SCH (08:30)
[2018-08-25 11:44] VITALS: BP 112/62
== END 2018-08-25 17:21 | disposition home or self-care (01) | DRG 698 ==
LOC: ER 15:52 → OBSVTOIN 21:18 → ED HOLD 21:18 → SUR 3N 22:10
PROVIDERS: ADMIT Hospitalist; ATTEND Hospitalist
PROC: 30233L1 Transfusion of Nonautologous Fresh Plasma into Peripheral Vein, Percutaneous Approach (ICD-10-PCS; principal; 2018-08-17)
PROC: 30233N1 Transfusion of Nonautologous Red Blood Cells into Peripheral Vein, Percutaneous Approach (ICD-10-PCS; 2018-08-17)
PROC: 30233K1 Transfusion of Nonautologous Frozen Plasma into Peripheral Vein, Percutaneous Approach (ICD-10-PCS; 2018-08-17)
DX: T83.83XA Hemorrhage due to genitourinary prosthetic devices, implants and grafts, initial encounter (principal); A41.9 Sepsis, unspecified organism; N39.0 Urinary tract infection, site not specified; D62 Acute posthemorrhagic anemia; N17.9 Acute kidney failure, unspecified; E87.1 Hypo-osmolality and hyponatremia; I13.0 Hypertensive heart and chronic kidney disease with heart failure and stage 1 through stage 4 chronic kidney disease, or unspecified chronic kidney disease; I42.0 Dilated cardiomyopathy; N32.81 Overactive bladder; B96.20 Unspecified Escherichia coli [E. coli] as the cause of diseases classified elsewhere; E11.21 Type 2 diabetes mellitus with diabetic nephropathy; E11.22 Type 2 diabetes mellitus with diabetic chronic kidney disease; E11.51 Type 2 diabetes mellitus with diabetic peripheral angiopathy without gangrene; E78.5 Hyperlipidemia, unspecified; G89.4 Chronic pain syndrome; I48.91 Unspecified atrial fibrillation; I50.9 Heart failure, unspecified; J44.9 Chronic obstructive pulmonary disease, unspecified; Z96.653 Presence of artificial knee joint, bilateral; Y84.6 Urinary catheterization as the cause of abnormal reaction of the patient, or of later complication, without mention of misadventure at the time of the procedure; I95.9 Hypotension, unspecified; K59.09 Other constipation; Z16.12 Extended spectrum beta lactamase (ESBL) resistance; M79.606 Pain in leg, unspecified; X58.XXXA Exposure to other specified factors, initial encounter; K21.9 Gastro-esophageal reflux disease without esophagitis; N18.3 Chronic kidney disease, stage 3 (moderate); Z16.24 Resistance to multiple antibiotics; Z89.201 Acquired absence of right upper limb, unspecified level; Z89.511 Acquired absence of right leg below knee; Z95.810 Presence of automatic (implantable) cardiac defibrillator; Z99.3 Dependence on wheelchair; Z74.01 Bed confinement status; Z79.890 Hormone replacement therapy; Z79.899 Other long term (current) drug therapy; Z88.2 Allergy status to sulfonamides; Z88.1 Allergy status to other antibiotic agents; Z91.011 Allergy to milk products; Z88.0 Allergy status to penicillin; Z79.4 Long term (current) use of insulin; Z79.82 Long term (current) use of aspirin; Z87.891 Personal history of nicotine dependence; Z86.73 Personal history of transient ischemic attack (TIA), and cerebral infarction without residual deficits; Y93.89 Activity, other specified; Y92.89 Other specified places as the place of occurrence of the external cause; Y99.8 Other external cause status
CPT/HCPCS: 36415; 71045; 80048; 80053; 80162; 81001; 82948; 83036; 83605; 83735; 84100; 84145; 84443; 85025; 86885; 86900; 86901; 86920; 87040; 87070; 87077; 87088; 87186; 93306; 93971; 94640; 94760; 97162; 97530; 99285; C9113; G0378; J1580; J1815; J1956; J2270; J2405; J7030; P9016; P9059; Q0163; Q2037

== ENCOUNTER 2018-09-03 21:34 | Inpatient (IN) | payer MEDICARE, OTHER ==
[~2018-09-03] VITALS: Ht 175.3 cm; Wt 101.0 kg
[~2018-09-03 21:34] MED LIST changes: +APIX2.5T PO; +ATOR10TA87 PO; +CYCL-394; -DOCU-148; +DOCU-148 PO; -DULR RC; -GUAI600T89 PO; +INSU100V9 SQ; -LACT1CAP65 PO; -POLY119P2 PO; -PRAV40TA3 PO; -TAMS0.4C32 PO; -ZAR2.5T PO
[2018-09-03] MEDS ORDERED: furosemide 40mg/4ml inj IV ONE ×2 (22:10→23:05)
[2018-09-03 22:15] LABS: BASOPHILS # (AUTO) 0.1 X10'3 (0-0.2); BASOPHILS % (AUTO) 0.5 % (0-1); EOSINOPHILS # (AUTO) 0.5 X10'3 (0-0.9); EOSINOPHILS % (AUTO) 3.8 % (0-6); HEMATOCRIT 33.5 % (42.0-52.0); HEMOGLOBIN 10.7 g/dl (14.0-17.9); LYMPHOCYTES # (AUTO) 1.3 X10'3 (1.1-4.8); LYMPHOCYTES % (AUTO) 9.9 % (21-51); MEAN CORPUSCULAR HEMOGLOBIN 27.7 PG (27.0-31.0); MEAN CORPUSCULAR HGB CONC 31.9 % (33.0-36.5); MEAN PLATELET VOLUME 9.6 FL (7.4-10.4); MONOCYTES # (AUTO) 0.7 X10'3 (0-0.9); NEUTROPHILS # (AUTO) 10.8 X10'3 (1.8-7.7); NEUTROPHILS % (AUTO) 80.8 % (42-75); PLATELET COUNT 237 X10'3 (140-440); RED BLOOD COUNT 3.85 X10'6 (4.70-6.10); WHITE BLOOD COUNT 13.4 X10'3 (4.5-11.0)
[2018-09-03 22:31] LABS: ALANINE AMINOTRANSFERASE 11 U/L (12-78); ALBUMIN 2.8 G/DL (3.4-5.0); ALBUMIN/GLOBULIN RATIO 0.7 (1.1-1.5); ALKALINE PHOSPHATASE 80 IU/L (46-116); ANION GAP 10 (8-16); ASPARTATE AMINO TRANSFERASE 10 U/L (10-37); BILIRUBIN,TOTAL 0.5 MG/DL (0.1-1.0); BLOOD UREA NITROGEN 136 MG/DL (7-18); BUN/CREATININE RATIO 19.9 (5.4-32.0); CALCIUM 7.8 MG/DL (8.5-10.1); CHLORIDE 95 MMOL/L (99-107); CREATININE 6.82 MG/DL (0.60-1.10); GLUCOSE 84 MG/DL (70-104); POTASSIUM 5.3 MMOL/L (3.5-5.1); SODIUM 133 MMOL/L (135-145); TOTAL CARBON DIOXIDE 27.9 MMOL/L (24-32); TOTAL PROTEIN 6.7 G/DL (6.4-8.2); eGFR 8 ML/MIN
[2018-09-03 22:42] LABS: INR 1.2 INR; PARTIAL THROMBOPLASTIN TIME 38 SECONDS (22-32); PROTHROMBIN TIME 12.3 SECONDS (9.0-12.0)
[2018-09-04] MEDS ORDERED: dextrose ORAL solution 15 GM/59 ML bottle PO PRN ×2 (01:40)
[2018-09-04] MEDS ORDERED: MESSAGE TO PHARMACY PO ONE (01:40)
[2018-09-04] MEDS ORDERED: dextrose 50%-water 50ml dispensing syringe IV PRN ×2 (01:40)
[2018-09-04] MEDS ORDERED: magnesium hydroxide 30ml (MOM) UD suspension PO PRN (01:40)
[2018-09-04] MEDS ORDERED: acetaminophen 325mg tablet PO PRN ×2 (01:40)
[2018-09-04] MEDS ORDERED: ondansetron/PF 4mg/2ml inj IV PRN (01:40)
[2018-09-04] MEDS ORDERED: glucagon, human recombinant 1mg kit SUBCUT PRN (01:40)
[2018-09-04] MEDS ORDERED: apixaban 2.5mg tablet PO STA (01:44)
[2018-09-04] MEDS ORDERED: bisacodyl 5mg tablet.DR PO PRN (01:45)
[2018-09-04 02:00] VITALS: BP 128/74
[2018-09-04 07:00] VITALS: BP 111/45
[2018-09-04] MEDS: sacubitril/valsartan 24mg-26mg tablet PO SCH ×2 (08:00→20:00)
[2018-09-04] MEDS: carVEDilol 12.5mg tablet PO SCH ×2 (08:00→20:00)
[2018-09-04] MEDS: tamsulosin 0.4mg capsule PO SCH (08:18)
[2018-09-04] MEDS: gabapentin 100mg capsule PO SCH (08:18)
[2018-09-04] MEDS: aspirin 81mg tab.chew PO SCH (08:18)
[2018-09-04] MEDS: docusate sod 100mg capsule PO SCH ×2 (08:18→20:04)
[2018-09-04] MEDS: atorvastatin 10mg tablet PO SCH (08:18)
[2018-09-04] MEDS: levoTHYROXINE 125mcg tablet PO SCH (08:18)
[2018-09-04] MEDS: furosemide 10 MG/1 ML 10ml inj IV SCH ×2 (08:20→20:00)
[2018-09-04] MEDS ORDERED: ZAR2.5T PO (09:38)
[2018-09-04 11:00] VITALS: BP 115/58
[2018-09-04 15:00] VITALS: BP 115/58
[2018-09-04] MEDS: apixaban 2.5mg tablet PO SCH (16:00)
[2018-09-04 19:00] VITALS: BP 98/38
[2018-09-04] MEDS ORDERED: sodium polystyrene sulfonate 15gm/60ml oral suspension PO ONE (20:05)
[2018-09-04] MEDS: insulin glargine (Lantus) pen - multi-dose SQ SCH (21:00)
[2018-09-04 23:00] VITALS: BP 107/39
[2018-09-05] MEDS: apixaban 2.5mg tablet PO SCH (02:49)
[2018-09-05 03:00] VITALS: BP 96/35
[2018-09-05 05:10] LABS: BASOPHILS % (AUTO) 0.3 % (0-1); EOSINOPHILS # (AUTO) 0.5 X10'3 (0-0.9); EOSINOPHILS % (AUTO) 4.9 % (0-6); HEMATOCRIT 31.8 % (42.0-52.0); HEMOGLOBIN 10.3 g/dl (14.0-17.9); LYMPHOCYTES # (AUTO) 1.4 X10'3 (1.1-4.8); LYMPHOCYTES % (AUTO) 13.2 % (21-51); MEAN CORPUSCULAR HEMOGLOBIN 28.3 PG (27.0-31.0); MEAN CORPUSCULAR HGB CONC 32.3 % (33.0-36.5); MEAN CORPUSCULAR VOLUME 87.4 FL (78-98); MEAN PLATELET VOLUME 9.4 FL (7.4-10.4); MONOCYTES # (AUTO) 0.6 X10'3 (0-0.9); MONOCYTES % (AUTO) 5.4 % (2-12); NEUTROPHILS % (AUTO) 76.2 % (42-75); PLATELET COUNT 179 X10'3 (140-440); RED BLOOD COUNT 3.64 X10'6 (4.70-6.10); RED CELL DISTRIBUTION WIDTH 16.1 % (11.5-14.5); WHITE BLOOD COUNT 10.5 X10'3 (4.5-11.0)
[2018-09-05 05:24] LABS: ALBUMIN 2.9 G/DL (3.4-5.0); ANION GAP 12 (8-16); BLOOD UREA NITROGEN 149 MG/DL (7-18); BUN/CREATININE RATIO 19.4 (5.4-32.0); CALCIUM 7.3 MG/DL (8.5-10.1); CHLORIDE 94 MMOL/L (99-107); GLUCOSE 91 MG/DL (70-104); POTASSIUM 5.4 MMOL/L (3.5-5.1); SODIUM 132 MMOL/L (135-145); TOTAL CARBON DIOXIDE 26.3 MMOL/L (24-32); eGFR 7 ML/MIN
[2018-09-05 06:02] LABS: ANISOCYTOSIS 1+; PLATELET ESTIMATE NORMAL
[2018-09-05 06:03] LABS: ELLIPTOCYTES 1+; POIKILOCYTOSIS FEW
[2018-09-05 07:00] VITALS: BP 100/27
[2018-09-05] MEDS: carVEDilol 12.5mg tablet PO SCH ×2 (07:49→20:00)
[2018-09-05] MEDS: sacubitril/valsartan 24mg-26mg tablet PO SCH (07:50)
[2018-09-05] MEDS: aspirin 81mg tab.chew PO SCH (10:15)
[2018-09-05] MEDS: atorvastatin 10mg tablet PO SCH (10:15)
[2018-09-05] MEDS: levoTHYROXINE 125mcg tablet PO SCH (10:15)
[2018-09-05] MEDS: gabapentin 100mg capsule PO SCH (10:15)
[2018-09-05] MEDS: docusate sod 100mg capsule PO SCH ×2 (10:16→20:00)
[2018-09-05] MEDS: tamsulosin 0.4mg capsule PO SCH (10:21)
[2018-09-05 11:00] VITALS: BP 113/51
[2018-09-05] MEDS ORDERED: fentaNYL/PF 50MCG/1 ML 2ML syringe IV PRN (11:30)
[2018-09-05] MEDS ORDERED: LIDOcaine 1%/PF 5ML 10 MG/ML VIAL ONE (11:43)
[2018-09-05] MEDS ORDERED: fentaNYL/PF 50MCG/1 ML 2ML syringe ONE (12:09)
[2018-09-05] MEDS ORDERED: heparin 1,000unit/ml 10ml vial 10 ML ONE (12:10)
[2018-09-05] MEDS ORDERED: LIDOcaine 1%/PF 5ML 10 MG/ML VIAL SQ ONE (12:40)
[2018-09-05] MEDS ORDERED: heparin 1,000 units/ml 10ml inj ICATH ONE (12:40)
[2018-09-05] MEDS ORDERED: normal saline 1000ml 250 ML IV PRN (13:40)
[2018-09-05] MEDS ORDERED: epoetin 20,000 units/ml inj IV ONE (13:40)
[2018-09-05] MEDS ORDERED: heparin 1,000 units/ml 10ml inj HE ONE ×2 (13:45)
[2018-09-05 15:00] VITALS: BP 110/46
[2018-09-05 19:00] VITALS: BP 107/98
[2018-09-05] MEDS: insulin glargine (Lantus) pen - multi-dose SQ SCH (21:00)
[2018-09-05 23:00] VITALS: BP 115/44
[2018-09-06 03:00] VITALS: BP 116/44
[2018-09-06 06:00] VITALS: BP_SYST 116; BP_SYST 118; BP_DIAS 39; BP_DIAS 59
[2018-09-06 06:02] LABS: BASOPHILS % (AUTO) 0.5 % (0-1); EOSINOPHILS # (AUTO) 0.3 X10'3 (0-0.9); EOSINOPHILS % (AUTO) 4.4 % (0-6); HEMATOCRIT 31.3 % (42.0-52.0); HEMOGLOBIN 10.1 g/dl (14.0-17.9); LYMPHOCYTES # (AUTO) 1.1 X10'3 (1.1-4.8); LYMPHOCYTES % (AUTO) 14.1 % (21-51); MEAN CORPUSCULAR HEMOGLOBIN 28.2 PG (27.0-31.0); MEAN CORPUSCULAR HGB CONC 32.3 % (33.0-36.5); MEAN CORPUSCULAR VOLUME 87.3 FL (78-98); MEAN PLATELET VOLUME 9.9 FL (7.4-10.4); MONOCYTES # (AUTO) 0.5 X10'3 (0-0.9); MONOCYTES % (AUTO) 6.9 % (2-12); NEUTROPHILS # (AUTO) 5.9 X10'3 (1.8-7.7); NEUTROPHILS % (AUTO) 74.1 % (42-75); PLATELET COUNT 162 X10'3 (140-440); RED BLOOD COUNT 3.59 X10'6 (4.70-6.10); RED CELL DISTRIBUTION WIDTH 16.1 % (11.5-14.5); WHITE BLOOD COUNT 7.9 X10'3 (4.5-11.0)
[2018-09-06 06:29] LABS: ALBUMIN 2.8 G/DL (3.4-5.0); ANION GAP 13 (8-16); BLOOD UREA NITROGEN 80 MG/DL (7-18); BUN/CREATININE RATIO 14.4 (5.4-32.0); CALCIUM 7.5 MG/DL (8.5-10.1); CHLORIDE 96 MMOL/L (99-107); CREATININE 5.57 MG/DL (0.60-1.10); GLUCOSE 102 MG/DL (70-104); MAGNESIUM 2.5 MG/DL (1.5-2.4); PHOSPHORUS 6.5 MG/DL (2.3-4.5); POTASSIUM 4.4 MMOL/L (3.5-5.1); SODIUM 135 MMOL/L (135-145); TOTAL CARBON DIOXIDE 25.6 MMOL/L (24-32); eGFR 11 ML/MIN
[2018-09-06] MEDS: atorvastatin 10mg tablet PO SCH (07:38)
[2018-09-06] MEDS: tamsulosin 0.4mg capsule PO SCH (07:38)
[2018-09-06] MEDS: gabapentin 100mg capsule PO SCH (07:38)
[2018-09-06] MEDS: levoTHYROXINE 125mcg tablet PO SCH (07:38)
[2018-09-06] MEDS: oxyCODONE/APAP 10/325mg tablet PO PRN ×2 (07:40→16:28)
[2018-09-06] MEDS ORDERED: normal saline 1000ml 250 ML IV PRN (08:00)
[2018-09-06] MEDS: docusate sod 100mg capsule PO SCH ×2 (08:00→19:48)
[2018-09-06] MEDS ORDERED: heparin 1,000 units/ml 10ml inj HE ONE ×2 (08:00)
[2018-09-06] MEDS ORDERED: epoetin 20,000 units/ml inj IV ONE (08:00)
[2018-09-06] MEDS ORDERED: heparin 1,000unit/ml 10ml vial 10 ML IV ONE (08:00)
[2018-09-06] MEDS: carVEDilol 12.5mg tablet PO SCH (08:00)
[2018-09-06 11:00] VITALS: BP_SYST 118
[2018-09-06 15:00] VITALS: BP 125/41
[2018-09-06] MEDS ORDERED: heparin, porcine 5000 units/ml vial SQ ONE (17:15)
[2018-09-06 18:30] VITALS: BP 106/38
[2018-09-06] MEDS: carVEDilol 3.125mg tablet PO SCH (19:48)
[2018-09-06] MEDS: insulin glargine (Lantus) pen - multi-dose SQ SCH (21:00)
[2018-09-06 23:00] VITALS: BP 123/41
[2018-09-07 02:30] VITALS: BP 117/48
[2018-09-07 06:00] VITALS: BP 120/58
[2018-09-07 06:06] LABS: BASOPHILS % (AUTO) 0.4 % (0-1); EOSINOPHILS # (AUTO) 0.3 X10'3 (0-0.9); EOSINOPHILS % (AUTO) 3.8 % (0-6); HEMOGLOBIN 10.7 g/dl (14.0-17.9); LYMPHOCYTES # (AUTO) 1.2 X10'3 (1.1-4.8); LYMPHOCYTES % (AUTO) 15.2 % (21-51); MEAN CORPUSCULAR HEMOGLOBIN 28.4 PG (27.0-31.0); MEAN CORPUSCULAR HGB CONC 32.5 % (33.0-36.5); MEAN CORPUSCULAR VOLUME 87.6 FL (78-98); MEAN PLATELET VOLUME 10.4 FL (7.4-10.4); MONOCYTES # (AUTO) 0.7 X10'3 (0-0.9); MONOCYTES % (AUTO) 9.1 % (2-12); NEUTROPHILS # (AUTO) 5.6 X10'3 (1.8-7.7); NEUTROPHILS % (AUTO) 71.5 % (42-75); PLATELET COUNT 148 X10'3 (140-440); RED BLOOD COUNT 3.77 X10'6 (4.70-6.10); RED CELL DISTRIBUTION WIDTH 16.8 % (11.5-14.5); WHITE BLOOD COUNT 7.8 X10'3 (4.5-11.0)
[2018-09-07 06:31] LABS: ANION GAP 11 (8-16); BLOOD UREA NITROGEN 45 MG/DL (7-18); BUN/CREATININE RATIO 10.3 (5.4-32.0); CALCIUM 7.9 MG/DL (8.5-10.1); CHLORIDE 97 MMOL/L (99-107); CREATININE 4.35 MG/DL (0.60-1.10); GLUCOSE 137 MG/DL (70-104); MAGNESIUM 2.3 MG/DL (1.5-2.4); PHOSPHORUS 4.5 MG/DL (2.3-4.5); POTASSIUM 4.3 MMOL/L (3.5-5.1); SODIUM 134 MMOL/L (135-145); TOTAL CARBON DIOXIDE 26.2 MMOL/L (24-32); eGFR 14 ML/MIN
[2018-09-07] MEDS: carVEDilol 3.125mg tablet PO SCH ×2 (08:39→20:06)
[2018-09-07] MEDS: gabapentin 100mg capsule PO SCH (08:39)
[2018-09-07] MEDS: atorvastatin 10mg tablet PO SCH (08:39)
[2018-09-07] MEDS: levoTHYROXINE 125mcg tablet PO SCH (08:39)
[2018-09-07] MEDS: docusate sod 100mg capsule PO SCH ×2 (08:39→20:05)
[2018-09-07] MEDS: tamsulosin 0.4mg capsule PO SCH (08:39)
[2018-09-07 09:17] LABS: HBSAG SCREEN Negative (Negative)
[2018-09-07] MEDS: oxyCODONE/APAP 10/325mg tablet PO PRN ×2 (10:43→20:37)
[2018-09-07 11:00] VITALS: BP 121/51
[2018-09-07] MEDS ORDERED: LIDOcaine 1%/PF 5ML 10 MG/ML VIAL ONE (13:49)
[2018-09-07] MEDS ORDERED: fentaNYL/PF 50MCG/1 ML 2ML syringe ONE (14:11)
[2018-09-07] MEDS ORDERED: heparin 1,000unit/ml 10ml vial 10 ML ONE (14:14)
[2018-09-07 15:00] VITALS: BP 114/52
[2018-09-07] MEDS: normal saline 1000ml 1,000 ML IV SCH (17:37)
[2018-09-07 18:45] VITALS: BP 121/57
[2018-09-07] MEDS: insulin glargine (Lantus) pen - multi-dose SQ SCH (20:27)
[2018-09-07 22:00] VITALS: BP 127/55
[2018-09-08] VITALS (7 sets, daily range): BP systolic 107–130; BP diastolic 47–68
[2018-09-08] MEDS: normal saline 1000ml 1,000 ML IV SCH (04:49)
[2018-09-08 06:00] LABS: BASOPHILS % (AUTO) 0.4 % (0-1); EOSINOPHILS # (AUTO) 0.4 X10'3 (0-0.9); EOSINOPHILS % (AUTO) 4.9 % (0-6); HEMATOCRIT 33.4 % (42.0-52.0); HEMOGLOBIN 10.7 g/dl (14.0-17.9); LYMPHOCYTES # (AUTO) 1.3 X10'3 (1.1-4.8); LYMPHOCYTES % (AUTO) 14.7 % (21-51); MEAN CORPUSCULAR HEMOGLOBIN 28.3 PG (27.0-31.0); MEAN CORPUSCULAR HGB CONC 32.1 % (33.0-36.5); MEAN CORPUSCULAR VOLUME 88.3 FL (78-98); MEAN PLATELET VOLUME 9.9 FL (7.4-10.4); MONOCYTES # (AUTO) 0.7 X10'3 (0-0.9); MONOCYTES % (AUTO) 8.1 % (2-12); NEUTROPHILS # (AUTO) 6.6 X10'3 (1.8-7.7); NEUTROPHILS % (AUTO) 71.9 % (42-75); PLATELET COUNT 140 X10'3 (140-440); RED BLOOD COUNT 3.78 X10'6 (4.70-6.10); RED CELL DISTRIBUTION WIDTH 16.7 % (11.5-14.5); WHITE BLOOD COUNT 9.2 X10'3 (4.5-11.0)
[2018-09-08 06:57] LABS: ANION GAP 10 (8-16); BLOOD UREA NITROGEN 54 MG/DL (7-18); BUN/CREATININE RATIO 10.3 (5.4-32.0); CALCIUM 7.7 MG/DL (8.5-10.1); CHLORIDE 95 MMOL/L (99-107); CREATININE 5.24 MG/DL (0.60-1.10); GLUCOSE 151 MG/DL (70-104); MAGNESIUM 2.2 MG/DL (1.5-2.4); PHOSPHORUS 4.6 MG/DL (2.3-4.5); POTASSIUM 4.2 MMOL/L (3.5-5.1); SODIUM 131 MMOL/L (135-145); TOTAL CARBON DIOXIDE 25.7 MMOL/L (24-32); eGFR 12 ML/MIN
[2018-09-08] MEDS: levoTHYROXINE 125mcg tablet PO SCH (07:33)
[2018-09-08] MEDS: gabapentin 100mg capsule PO SCH (07:33)
[2018-09-08] MEDS: atorvastatin 10mg tablet PO SCH (07:34)
[2018-09-08] MEDS: docusate sod 100mg capsule PO SCH ×2 (07:34→20:00)
[2018-09-08] MEDS: carVEDilol 3.125mg tablet PO SCH ×2 (07:34→20:00)
[2018-09-08] MEDS: tamsulosin 0.4mg capsule PO SCH (07:34)
[2018-09-08] MEDS ORDERED: normal saline 1000ml 250 ML IV PRN (08:00)
[2018-09-08] MEDS ORDERED: heparin 1,000 units/ml 10ml inj HE ONE ×2 (08:00)
[2018-09-08] MEDS ORDERED: heparin 1,000unit/ml 10ml vial 10 ML IV ONE (08:00)
[2018-09-08] MEDS ORDERED: epoetin 20,000 units/ml inj IV ONE (08:00)
[2018-09-08] MEDS ORDERED: furosemide 40mg/4ml inj IV ONE (10:40)
[2018-09-08 14:16] LABS: CLARITY,URINE TURBID (Clear); COLOR,URINE RED (Yellow); UA COLLECTION TYPE FOLEY CATH
[2018-09-08 14:19] LABS: BACTERIA,URINE 3+ /HPF (Neg); MUCUS STRANDS NONE SEEN /LPF (Neg); RBC,URINE TNTC /HPF (0-2); SQUAMOUS EPITHELIAL CELL,UR NONE SEEN /LPF (FEW); WBC CLUMPS,URINE MANY /HPF (NEGATIVE); WBC,URINE TNTC /HPF (0-4)
[2018-09-08 14:47] LABS: TOTAL PROTEIN,URINE RANDOM 927.6 MG/DL
[2018-09-08] MEDS ORDERED: apixaban 5mg tablet PO SCH (20:00)
[2018-09-08] MEDS: sacubitril/valsartan 24mg-26mg tablet PO SCH (20:00)
[2018-09-08] MEDS: furosemide 40mg tablet PO SCH (20:00)
[2018-09-08] MEDS: insulin glargine (Lantus) pen - multi-dose SQ SCH (21:00)
[2018-09-09] VITALS (7 sets, daily range): BP systolic 99–123; BP diastolic 46–58
[2018-09-09] MEDS: oxyCODONE/APAP 10/325mg tablet PO PRN ×2 (01:32→12:15)
[2018-09-09 05:01] LABS: BASOPHILS % (AUTO) 0.2 % (0-1); EOSINOPHILS # (AUTO) 0.4 X10'3 (0-0.9); EOSINOPHILS % (AUTO) 4.9 % (0-6); HEMOGLOBIN 10.3 g/dl (14.0-17.9); LYMPHOCYTES # (AUTO) 1.3 X10'3 (1.1-4.8); LYMPHOCYTES % (AUTO) 14.4 % (21-51); MEAN CORPUSCULAR HEMOGLOBIN 28.3 PG (27.0-31.0); MEAN CORPUSCULAR HGB CONC 32.1 % (33.0-36.5); MEAN CORPUSCULAR VOLUME 88.3 FL (78-98); MEAN PLATELET VOLUME 9.4 FL (7.4-10.4); MONOCYTES # (AUTO) 0.8 X10'3 (0-0.9); MONOCYTES % (AUTO) 8.6 % (2-12); NEUTROPHILS # (AUTO) 6.4 X10'3 (1.8-7.7); NEUTROPHILS % (AUTO) 71.9 % (42-75); PLATELET COUNT 125 X10'3 (140-440); RED BLOOD COUNT 3.62 X10'6 (4.70-6.10); RED CELL DISTRIBUTION WIDTH 17.4 % (11.5-14.5); WHITE BLOOD COUNT 8.9 X10'3 (4.5-11.0)
[2018-09-09 05:57] LABS: ALANINE AMINOTRANSFERASE 12 U/L (12-78); ALBUMIN 2.8 G/DL (3.4-5.0); ALBUMIN/GLOBULIN RATIO 0.8 (1.1-1.5); ALKALINE PHOSPHATASE 75 IU/L (46-116); ANION GAP 9 (8-16); ASPARTATE AMINO TRANSFERASE 10 U/L (10-37); BILIRUBIN,TOTAL 0.5 MG/DL (0.1-1.0); BLOOD UREA NITROGEN 32 MG/DL (7-18); BUN/CREATININE RATIO 8.2 (5.4-32.0); CALCIUM 7.9 MG/DL (8.5-10.1); CHLORIDE 99 MMOL/L (99-107); CREATININE 3.91 MG/DL (0.60-1.10); GLUCOSE 159 MG/DL (70-104); PHOSPHORUS 3.9 MG/DL (2.3-4.5); SODIUM 135 MMOL/L (135-145); TOTAL CARBON DIOXIDE 26.6 MMOL/L (24-32); TOTAL PROTEIN 6.3 G/DL (6.4-8.2); eGFR 16 ML/MIN
[2018-09-09 08:09] LABS: HEP B CORE AB, IGM Negative (Negative)
[2018-09-09] MEDS: levoTHYROXINE 125mcg tablet PO SCH (08:13)
[2018-09-09] MEDS: furosemide 40mg tablet PO SCH ×2 (08:13→19:46)
[2018-09-09] MEDS: carVEDilol 3.125mg tablet PO SCH ×2 (08:14→19:42)
[2018-09-09] MEDS: atorvastatin 10mg tablet PO SCH (08:14)
[2018-09-09] MEDS: sacubitril/valsartan 24mg-26mg tablet PO SCH ×2 (08:15→19:42)
[2018-09-09] MEDS: tamsulosin 0.4mg capsule PO SCH (08:16)
[2018-09-09] MEDS: gabapentin 100mg capsule PO SCH (08:16)
[2018-09-09] MEDS: docusate sod 100mg capsule PO SCH ×2 (08:17→19:46)
[2018-09-09] MEDS: aspirin 81mg tablet.DR PO SCH (08:19)
[2018-09-09] MEDS: insulin glargine (Lantus) pen - multi-dose SQ SCH (21:00)
[2018-09-10 02:00] VITALS: BP 110/56
[2018-09-10] MEDS: oxyCODONE/APAP 10/325mg tablet PO PRN (04:50)
[2018-09-10 06:42] LABS: MAGNESIUM 2.1 MG/DL (1.5-2.4); PHOSPHORUS 4.9 MG/DL (2.3-4.5)
[2018-09-10 07:00] VITALS: BP 115/52
[2018-09-10] MEDS: docusate sod 100mg capsule PO SCH ×2 (07:36→20:01)
[2018-09-10] MEDS: atorvastatin 10mg tablet PO SCH (07:37)
[2018-09-10] MEDS: gabapentin 100mg capsule PO SCH (07:37)
[2018-09-10] MEDS: tamsulosin 0.4mg capsule PO SCH (07:37)
[2018-09-10] MEDS: furosemide 40mg tablet PO SCH ×2 (07:37→20:01)
[2018-09-10] MEDS: sacubitril/valsartan 24mg-26mg tablet PO SCH ×2 (07:37→20:02)
[2018-09-10] MEDS: aspirin 81mg tablet.DR PO SCH (07:37)
[2018-09-10] MEDS: levoTHYROXINE 125mcg tablet PO SCH (07:37)
[2018-09-10] MEDS: carVEDilol 3.125mg tablet PO SCH ×2 (07:37→20:01)
[2018-09-10] MEDS ORDERED: aztreonam inj. 1,000 MG in normal saline 100ml IV soln 100 ML IV SCH (08:45)
[2018-09-10 10:22] LABS: BASOPHILS % (AUTO) 0.4 % (0-1); EOSINOPHILS # (AUTO) 0.7 X10'3 (0-0.9); EOSINOPHILS % (AUTO) 7.2 % (0-6); HEMATOCRIT 32.5 % (42.0-52.0); HEMOGLOBIN 10.4 g/dl (14.0-17.9); LYMPHOCYTES # (AUTO) 1.3 X10'3 (1.1-4.8); LYMPHOCYTES % (AUTO) 13.2 % (21-51); MEAN CORPUSCULAR HEMOGLOBIN 28.2 PG (27.0-31.0); MEAN CORPUSCULAR HGB CONC 32.1 % (33.0-36.5); MEAN CORPUSCULAR VOLUME 87.9 FL (78-98); MEAN PLATELET VOLUME 9.7 FL (7.4-10.4); MONOCYTES # (AUTO) 0.8 X10'3 (0-0.9); MONOCYTES % (AUTO) 7.8 % (2-12); NEUTROPHILS # (AUTO) 7.1 X10'3 (1.8-7.7); NEUTROPHILS % (AUTO) 71.4 % (42-75); PLATELET COUNT 134 X10'3 (140-440); RED CELL DISTRIBUTION WIDTH 17.7 % (11.5-14.5); WHITE BLOOD COUNT 9.9 X10'3 (4.5-11.0)
[2018-09-10 10:36] LABS: ALBUMIN 2.9 G/DL (3.4-5.0); ANION GAP 11 (8-16); BLOOD UREA NITROGEN 42 MG/DL (7-18); CALCIUM 7.7 MG/DL (8.5-10.1); CHLORIDE 96 MMOL/L (99-107); CREATININE 5.23 MG/DL (0.60-1.10); GLUCOSE 171 MG/DL (70-104); POTASSIUM 3.8 MMOL/L (3.5-5.1); SODIUM 133 MMOL/L (135-145); TOTAL CARBON DIOXIDE 26.1 MMOL/L (24-32); eGFR 12 ML/MIN
[2018-09-10] MEDS: linezolid 600mg/300ml PREMIX 300 ML IV SCH ×2 (10:43→19:58)
[2018-09-10] MEDS: aztreonam inj. 1,000 MG in normal saline 100ml IV soln 100 ML IV SCH ×2 (10:43→16:45)
[2018-09-10 11:00] VITALS: BP 95/45
[2018-09-10 15:00] VITALS: BP 115/63
[2018-09-10 19:00] VITALS: BP 93/35
[2018-09-10] MEDS: insulin glargine (Lantus) pen - multi-dose SQ SCH (21:15)
[2018-09-10 22:51] VITALS: BP 111/53
[2018-09-11] MEDS: aztreonam inj. 1,000 MG in normal saline 100ml IV soln 100 ML IV SCH ×2 (00:56→08:08)
[2018-09-11 02:53] VITALS: BP 108/51
[2018-09-11 06:20] LABS: ANION GAP 14 (8-16); BASOPHILS % (AUTO) 0.5 % (0-1); BLOOD UREA NITROGEN 50 MG/DL (7-18); BUN/CREATININE RATIO 8.7 (5.4-32.0); CALCIUM 7.8 MG/DL (8.5-10.1); CHLORIDE 94 MMOL/L (99-107); CREATININE 5.75 MG/DL (0.60-1.10); EOSINOPHILS # (AUTO) 0.6 X10'3 (0-0.9); EOSINOPHILS % (AUTO) 6.1 % (0-6); GLUCOSE 162 MG/DL (70-104); HEMATOCRIT 33.8 % (42.0-52.0); HEMOGLOBIN 10.9 g/dl (14.0-17.9); LYMPHOCYTES # (AUTO) 1.5 X10'3 (1.1-4.8); MEAN CORPUSCULAR HEMOGLOBIN 28.5 PG (27.0-31.0); MEAN CORPUSCULAR HGB CONC 32.4 % (33.0-36.5); MEAN CORPUSCULAR VOLUME 88.1 FL (78-98); MONOCYTES # (AUTO) 0.7 X10'3 (0-0.9); MONOCYTES % (AUTO) 7.2 % (2-12); NEUTROPHILS # (AUTO) 7.5 X10'3 (1.8-7.7); NEUTROPHILS % (AUTO) 72.2 % (42-75); PLATELET COUNT 122 X10'3 (140-440); RED BLOOD COUNT 3.83 X10'6 (4.70-6.10); RED CELL DISTRIBUTION WIDTH 17.4 % (11.5-14.5); SODIUM 131 MMOL/L (135-145); TOTAL CARBON DIOXIDE 22.6 MMOL/L (24-32); WHITE BLOOD COUNT 10.4 X10'3 (4.5-11.0); eGFR 10 ML/MIN
[2018-09-11 07:00] VITALS: BP 147/87
[2018-09-11] MEDS ORDERED: heparin 1,000 units/ml 10ml inj HE ONE ×2 (08:00)
[2018-09-11] MEDS ORDERED: heparin 1,000unit/ml 10ml vial 10 ML IV ONE (08:00)
[2018-09-11] MEDS ORDERED: epoetin 20,000 units/ml inj IV ONE (08:00)
[2018-09-11] MEDS ORDERED: normal saline 1000ml 250 ML IV PRN (08:00)
[2018-09-11] MEDS: levoTHYROXINE 125mcg tablet PO SCH (08:08)
[2018-09-11] MEDS: furosemide 40mg tablet PO SCH ×2 (08:08→19:31)
[2018-09-11] MEDS: linezolid 600mg/300ml PREMIX 300 ML IV SCH (08:08)
[2018-09-11] MEDS: sacubitril/valsartan 24mg-26mg tablet PO SCH ×2 (08:08→20:00)
[2018-09-11] MEDS: atorvastatin 10mg tablet PO SCH (08:08)
[2018-09-11] MEDS: carVEDilol 3.125mg tablet PO SCH ×2 (08:08→19:31)
[2018-09-11] MEDS: gabapentin 100mg capsule PO SCH (08:08)
[2018-09-11] MEDS: tamsulosin 0.4mg capsule PO SCH (08:08)
[2018-09-11] MEDS: docusate sod 100mg capsule PO SCH ×2 (08:08→19:21)
[2018-09-11 11:00] VITALS: BP 99/49
[2018-09-11 15:00] VITALS: BP 102/50
[2018-09-11] MEDS ORDERED: aztreonam inj. 500 MG in normal saline 100ml IV soln 100 ML IV SCH (16:00)
[2018-09-11] MEDS: insulin Lispro (HumaLOG) vial - multi-dose SQ SCH (18:40)
[2018-09-11 19:00] VITALS: BP 99/45
[2018-09-11] MEDS: insulin glargine (Lantus) pen - multi-dose SQ SCH (20:55)
[2018-09-11 22:41] VITALS: BP 118/47
[2018-09-12] VITALS (7 sets, daily range): BP systolic 102–119; BP diastolic 36–67
[2018-09-12] MEDS: oxyCODONE/APAP 10/325mg tablet PO PRN (00:29)
[2018-09-12 06:05] LABS: BASOPHILS % (AUTO) 0.5 % (0-1); EOSINOPHILS # (AUTO) 0.4 X10'3 (0-0.9); EOSINOPHILS % (AUTO) 4.8 % (0-6); HEMATOCRIT 32.5 % (42.0-52.0); HEMOGLOBIN 10.4 g/dl (14.0-17.9); LYMPHOCYTES # (AUTO) 1.5 X10'3 (1.1-4.8); LYMPHOCYTES % (AUTO) 16.9 % (21-51); MEAN CORPUSCULAR HEMOGLOBIN 28.1 PG (27.0-31.0); MEAN CORPUSCULAR HGB CONC 31.8 % (33.0-36.5); MEAN CORPUSCULAR VOLUME 88.2 FL (78-98); MEAN PLATELET VOLUME 10.2 FL (7.4-10.4); MONOCYTES # (AUTO) 0.9 X10'3 (0-0.9); MONOCYTES % (AUTO) 9.6 % (2-12); NEUTROPHILS # (AUTO) 6.1 X10'3 (1.8-7.7); NEUTROPHILS % (AUTO) 68.2 % (42-75); PLATELET COUNT 127 X10'3 (140-440); RED BLOOD COUNT 3.69 X10'6 (4.70-6.10); RED CELL DISTRIBUTION WIDTH 17.4 % (11.5-14.5); WHITE BLOOD COUNT 8.9 X10'3 (4.5-11.0)
[2018-09-12 06:27] LABS: ALBUMIN 2.7 G/DL (3.4-5.0); ANION GAP 10 (8-16); BLOOD UREA NITROGEN 29 MG/DL (7-18); BUN/CREATININE RATIO 6.7 (5.4-32.0); CALCIUM 7.8 MG/DL (8.5-10.1); CHLORIDE 98 MMOL/L (99-107); CREATININE 4.32 MG/DL (0.60-1.10); GLUCOSE 129 MG/DL (70-104); POTASSIUM 3.8 MMOL/L (3.5-5.1); SODIUM 134 MMOL/L (135-145); TOTAL CARBON DIOXIDE 25.7 MMOL/L (24-32); eGFR 14 ML/MIN
[2018-09-12] MEDS ORDERED: potassium Cl 20 mEq SR tablet PO STA (07:35)
[2018-09-12] MEDS: carVEDilol 3.125mg tablet PO SCH ×2 (08:00→19:21)
[2018-09-12] MEDS: sacubitril/valsartan 24mg-26mg tablet PO SCH ×2 (08:00→19:21)
[2018-09-12] MEDS: docusate sod 100mg capsule PO SCH ×2 (08:00→19:20)
[2018-09-12] MEDS: furosemide 40mg tablet PO SCH ×2 (08:00→19:21)
[2018-09-12 08:35] LABS: MAGNESIUM 1.9 MG/DL (1.5-2.4)
[2018-09-12] MEDS: tamsulosin 0.4mg capsule PO SCH (09:22)
[2018-09-12] MEDS: atorvastatin 10mg tablet PO SCH (09:22)
[2018-09-12] MEDS: gabapentin 100mg capsule PO SCH (09:22)
[2018-09-12] MEDS: levoTHYROXINE 125mcg tablet PO SCH (09:22)
[2018-09-12] MEDS: insulin Lispro (HumaLOG) vial - multi-dose SQ SCH (14:32)
[2018-09-12] MEDS: insulin glargine (Lantus) pen - multi-dose SQ SCH (21:26)
[2018-09-13 02:00] VITALS: BP 107/54
[2018-09-13 05:55] LABS: BASOPHILS % (AUTO) 0.2 % (0-1); EOSINOPHILS # (AUTO) 0.4 X10'3 (0-0.9); EOSINOPHILS % (AUTO) 4.7 % (0-6); HEMATOCRIT 34.5 % (42.0-52.0); HEMOGLOBIN 10.9 g/dl (14.0-17.9); LYMPHOCYTES # (AUTO) 1.3 X10'3 (1.1-4.8); LYMPHOCYTES % (AUTO) 14.5 % (21-51); MEAN CORPUSCULAR HEMOGLOBIN 28.2 PG (27.0-31.0); MEAN CORPUSCULAR HGB CONC 31.7 % (33.0-36.5); MEAN CORPUSCULAR VOLUME 89.1 FL (78-98); MEAN PLATELET VOLUME 9.6 FL (7.4-10.4); MONOCYTES # (AUTO) 0.9 X10'3 (0-0.9); MONOCYTES % (AUTO) 9.6 % (2-12); NEUTROPHILS # (AUTO) 6.6 X10'3 (1.8-7.7); PLATELET COUNT 135 X10'3 (140-440); RED BLOOD COUNT 3.87 X10'6 (4.70-6.10); RED CELL DISTRIBUTION WIDTH 17.4 % (11.5-14.5); WHITE BLOOD COUNT 9.3 X10'3 (4.5-11.0)
[2018-09-13 06:00] VITALS: BP 127/51
[2018-09-13 06:09] LABS: ALBUMIN 2.9 G/DL (3.4-5.0); ANION GAP 14 (8-16); BLOOD UREA NITROGEN 38 MG/DL (7-18); BUN/CREATININE RATIO 7.5 (5.4-32.0); CALCIUM 8.1 MG/DL (8.5-10.1); CHLORIDE 98 MMOL/L (99-107); CREATININE 5.09 MG/DL (0.60-1.10); GLUCOSE 137 MG/DL (70-104); POTASSIUM 4.1 MMOL/L (3.5-5.1); SODIUM 135 MMOL/L (135-145); eGFR 12 ML/MIN
[2018-09-13] MEDS ORDERED: epoetin 20,000 units/ml inj IV ONE (08:45)
[2018-09-13] MEDS ORDERED: heparin 1,000unit/ml 10ml vial 10 ML IV ONE (08:45)
[2018-09-13] MEDS ORDERED: normal saline 1000ml 250 ML IV PRN (08:45)
[2018-09-13] MEDS: docusate sod 100mg capsule PO SCH (08:47)
[2018-09-13] MEDS: furosemide 40mg tablet PO SCH (08:47)
[2018-09-13] MEDS: gabapentin 100mg capsule PO SCH (08:47)
[2018-09-13] MEDS: carVEDilol 3.125mg tablet PO SCH (08:48)
[2018-09-13] MEDS: tamsulosin 0.4mg capsule PO SCH (08:49)
[2018-09-13] MEDS: atorvastatin 10mg tablet PO SCH (08:49)
[2018-09-13] MEDS: levoTHYROXINE 125mcg tablet PO SCH (08:49)
[2018-09-13] MEDS ORDERED: heparin 1,000 units/ml 10ml inj HE ONE ×2 (08:50)
[2018-09-13] MEDS: sacubitril/valsartan 24mg-26mg tablet PO SCH (09:05)
[2018-09-13 11:00] VITALS: BP 108/49
[2018-09-13] MEDS ORDERED: GABA100C PO (14:17)
[2018-09-13] MEDS ORDERED: COR3.125T PO (14:17)
[2018-09-13 15:00] VITALS: BP 118/59
== END 2018-09-13 16:05 | disposition home health service (06) | DRG 673 ==
LOC: ER 21:35 → ED HOLD 09-04 01:37 → PCU 3S 09-04 02:03
PROVIDERS: ADMIT Internal Medicine; ATTEND Internal Medicine
PROC: 5A1D70Z Performance of Urinary Filtration, Intermittent, Less than 6 Hours Per Day (ICD-10-PCS; 2018-09-05)
PROC: 02HV33Z Insertion of Infusion Device into Superior Vena Cava, Percutaneous Approach (ICD-10-PCS; 2018-09-05)
PROC: B5181ZA Fluoroscopy of Superior Vena Cava using Low Osmolar Contrast, Guidance (ICD-10-PCS; 2018-09-05)
PROC: 5A1D70Z Performance of Urinary Filtration, Intermittent, Less than 6 Hours Per Day (ICD-10-PCS; 2018-09-06)
PROC: 0JH63XZ Insertion of Tunneled Vascular Access Device into Chest Subcutaneous Tissue and Fascia, Percutaneous Approach (ICD-10-PCS; principal; 2018-09-07)
PROC: B5181ZA Fluoroscopy of Superior Vena Cava using Low Osmolar Contrast, Guidance (ICD-10-PCS; 2018-09-07)
PROC: 02HV33Z Insertion of Infusion Device into Superior Vena Cava, Percutaneous Approach (ICD-10-PCS; 2018-09-07)
PROC: B548ZZA Ultrasonography of Superior Vena Cava, Guidance (ICD-10-PCS; 2018-09-07)
PROC: 5A1D70Z Performance of Urinary Filtration, Intermittent, Less than 6 Hours Per Day (ICD-10-PCS; 2018-09-08)
PROC: 5A1D70Z Performance of Urinary Filtration, Intermittent, Less than 6 Hours Per Day (ICD-10-PCS; 2018-09-11)
PROC: 5A1D70Z Performance of Urinary Filtration, Intermittent, Less than 6 Hours Per Day (ICD-10-PCS; 2018-09-13)
DX: N17.0 Acute kidney failure with tubular necrosis (principal); I50.23 Acute on chronic systolic (congestive) heart failure; I13.2 Hypertensive heart and chronic kidney disease with heart failure and with stage 5 chronic kidney disease, or end stage renal disease; I42.9 Cardiomyopathy, unspecified; E11.21 Type 2 diabetes mellitus with diabetic nephropathy; E11.22 Type 2 diabetes mellitus with diabetic chronic kidney disease; D64.9 Anemia, unspecified; N18.6 End stage renal disease; R31.0 Gross hematuria; R00.1 Bradycardia, unspecified; E87.5 Hyperkalemia; T46.0X5A Adverse effect of cardiac-stimulant glycosides and drugs of similar action, initial encounter; R82.71 Bacteriuria; G89.4 Chronic pain syndrome; I48.91 Unspecified atrial fibrillation; J44.9 Chronic obstructive pulmonary disease, unspecified; Z22.8 Carrier of other infectious diseases; Z74.01 Bed confinement status; Z99.2 Dependence on renal dialysis; Z99.3 Dependence on wheelchair; Z89.511 Acquired absence of right leg below knee; Z89.121 Acquired absence of right wrist; Z95.810 Presence of automatic (implantable) cardiac defibrillator; Z88.2 Allergy status to sulfonamides; Z88.8 Allergy status to other drugs, medicaments and biological substances; Z88.0 Allergy status to penicillin; Z88.1 Allergy status to other antibiotic agents; Z91.011 Allergy to milk products; Z79.82 Long term (current) use of aspirin; Z79.01 Long term (current) use of anticoagulants; Z87.891 Personal history of nicotine dependence; Z86.73 Personal history of transient ischemic attack (TIA), and cerebral infarction without residual deficits; Y92.89 Other specified places as the place of occurrence of the external cause
CPT/HCPCS: 36415; 36556; 36558; 71045; 76775; 76937; 76942; 77001; 80048; 80053; 80162; 81001; 82570; 82948; 83735; 83880; 84100; 84156; 84300; 84484; 84540; 85025; 85610; 85730; 86705; 86706; 87040; 87070; 87077; 87088; 87186; 87340; 93005; 93975; 96374; 96376; 97161; 97530; 99285; A9270; C1750; C1751; C1894; G0257; G0378; J0885; J1644; J1815; J1940; J2001; J2020; J2150; J3010; J3490; J7030

== ENCOUNTER 2018-09-26 10:47 | Day surgery (SDC) | payer MEDICARE, OTHER, MEDICAID ==
[~2018-09-26 10:47] MED LIST changes: -ALLO100T PO; -APIX2.5T PO; -ASPI-1265 PO; -BISA-155 PR; -CARV-50 PO; +COR3.125T PO; -CYCL-394; -DIGO125T78 PO; -GABA-338 PO; +GABA100C PO; -LANTUS SQ; -MYCOL15CR TOP; -lidocaine 2%
[2018-09-26 11:20] VITALS: BP 118/51
[2018-09-26] MEDS ORDERED: FURO40TA4 PO (12:20)
[2018-09-26] MEDS ORDERED: SACU1TAB PO (12:20)
[2018-09-26] MEDS ORDERED: CARV3.122 PO (12:20)
[2018-09-26] MEDS ORDERED: GABA100C PO (12:20)
[2018-09-26 13:00] LABS: BASOPHILS % (AUTO) 0.6 % (0-1); EOSINOPHILS # (AUTO) 0.3 X10'3 (0-0.9); EOSINOPHILS % (AUTO) 3.6 % (0-6); HEMATOCRIT 38.5 % (42.0-52.0); HEMOGLOBIN 12.2 g/dl (14.0-17.9); LYMPHOCYTES # (AUTO) 1.3 X10'3 (1.1-4.8); LYMPHOCYTES % (AUTO) 15.2 % (21-51); MEAN CORPUSCULAR HGB CONC 31.5 % (33.0-36.5); MEAN CORPUSCULAR VOLUME 88.8 FL (78-98); MEAN PLATELET VOLUME 10.2 FL (7.4-10.4); MONOCYTES # (AUTO) 0.8 X10'3 (0-0.9); MONOCYTES % (AUTO) 9.7 % (2-12); NEUTROPHILS # (AUTO) 6.1 X10'3 (1.8-7.7); NEUTROPHILS % (AUTO) 70.9 % (42-75); PLATELET COUNT 187 X10'3 (140-440); RED BLOOD COUNT 4.34 X10'6 (4.70-6.10); RED CELL DISTRIBUTION WIDTH 18.5 % (11.5-14.5); WHITE BLOOD COUNT 8.6 X10'3 (4.5-11.0)
[2018-09-26 13:10] LABS: ALBUMIN 3.6 G/DL (3.4-5.0); ANION GAP 8 (8-16); BLOOD UREA NITROGEN 42 MG/DL (7-18); BUN/CREATININE RATIO 16.6 (5.4-32.0); CALCIUM 8.7 MG/DL (8.5-10.1); CHLORIDE 98 MMOL/L (99-107); CREATININE 2.53 MG/DL (0.60-1.10); GLUCOSE 163 MG/DL (70-104); POTASSIUM 4.1 MMOL/L (3.5-5.1); SODIUM 139 MMOL/L (135-145); TOTAL CARBON DIOXIDE 32.6 MMOL/L (24-32); eGFR 27 ML/MIN
[2018-09-26] MEDS ORDERED: fentaNYL/PF 50MCG/1 ML 2ML syringe IV PRN (13:15)
[2018-09-26] MEDS ORDERED: LIDOcaine 1%/PF 5ML 10 MG/ML VIAL SQ ONE (13:15)
[2018-09-26] MEDS ORDERED: clindamycin 600mg/D5W 50ml 50 ML IV ONE (13:15)
[2018-09-26] MEDS ORDERED: heparin 1,000 units/ml 10ml inj ICATH ONE (13:15)
[2018-09-26] MEDS ORDERED: LIDOcaine 1%/PF 5ML 10 MG/ML VIAL ONE (13:18)
[2018-09-26 13:31] LABS: INR 1.1 INR; PROTHROMBIN TIME 11.5 SECONDS (9.0-12.0)
[2018-09-26] MEDS ORDERED: fentaNYL/PF 50MCG/1 ML 2ML syringe ONE (13:40)
[2018-09-26] MEDS ORDERED: heparin 1,000unit/ml 10ml vial 10 ML ONE (13:40)
[2018-09-26] MEDS ORDERED: midazolam 2 mg/2 ml injection ONE (13:46)
[2018-09-26] MEDS ORDERED: clindamycin 300mg/D5W 50mL 50 ML IV SCH (14:00)
[2018-09-26 14:30] VITALS: BP 124/75
[2018-09-26 14:45] VITALS: BP 117/61
== END 2018-09-26 15:05 | disposition home or self-care (01) ==
LOC: SSTAY O 10:47
PROVIDERS: ATTEND Radiology Vascular & Interventional Radiology
DX: T82.49XA Other complication of vascular dialysis catheter, initial encounter (principal); Y83.8 Other surgical procedures as the cause of abnormal reaction of the patient, or of later complication, without mention of misadventure at the time of the procedure; Y92.89 Other specified places as the place of occurrence of the external cause; N17.8 Other acute kidney failure; E11.22 Type 2 diabetes mellitus with diabetic chronic kidney disease; I13.0 Hypertensive heart and chronic kidney disease with heart failure and stage 1 through stage 4 chronic kidney disease, or unspecified chronic kidney disease; N18.9 Chronic kidney disease, unspecified; I50.9 Heart failure, unspecified; H91.8X3 Other specified hearing loss, bilateral; G89.29 Other chronic pain; I48.91 Unspecified atrial fibrillation; Z87.440 Personal history of urinary (tract) infections; Z86.73 Personal history of transient ischemic attack (TIA), and cerebral infarction without residual deficits; Z79.891 Long term (current) use of opiate analgesic; Z79.01 Long term (current) use of anticoagulants; Z79.82 Long term (current) use of aspirin; Z79.4 Long term (current) use of insulin; Z88.0 Allergy status to penicillin; Z91.011 Allergy to milk products; Z88.2 Allergy status to sulfonamides; Z86.74 Personal history of sudden cardiac arrest; Z87.891 Personal history of nicotine dependence; Z99.2 Dependence on renal dialysis; Z87.2 Personal history of diseases of the skin and subcutaneous tissue; Z89.511 Acquired absence of right leg below knee; Z89.201 Acquired absence of right upper limb, unspecified level; Z98.890 Other specified postprocedural states; Z79.899 Other long term (current) drug therapy; Z88.8 Allergy status to other drugs, medicaments and biological substances; Z83.3 Family history of diabetes mellitus; Z82.41 Family history of sudden cardiac death; Z82.49 Family history of ischemic heart disease and other diseases of the circulatory system
CPT/HCPCS: 36415; 36581; 77001; 80048; 82948; 85025; 85610; 99152; 99153; J1644; J2001; J2250; J3010; C1750; C1769; X5958

== ENCOUNTER 2018-11-13 16:34 | Inpatient (IN) | payer MEDICARE, OTHER, MEDICAID | END 2018-11-22 14:59 | disposition hospice, home (50) | LOC: SUR 3N 11-21 21:05 → ICU 2S 16:34 | PROC: 5A1D70Z Performance of Urinary Filtration, Intermittent, Less than 6 Hours Per Day (ICD-10-PCS; principal; ~2018-11-13) | DX: N17.9 Acute kidney failure, unspecified (principal); I50.23 Acute on chronic systolic (congestive) heart failure; N18.6 End stage renal disease; Z95.810 Presence of automatic (implantable) cardiac defibrillator; Z99.2 Dependence on renal dialysis ==